=== PATIENT | female | born 1940 | race Caucasian/White ===

== ENCOUNTER → 2016-12-16 | Outpatient (CLI) | payer BC ==
[~2016-12-16] MED LIST: ALBINS/ INH; ALBUAER2 INH; ALPR1TAB3 PO; ATOR-26 PO; CLOP1TAB15 PO; CRDCD240 PO; DULO60CA44 PO; DXY100 PO; EFF75 PO; FRS/40 PO; LEVO50TA6 PO; LISI20TA3 PO; LOSA100T65 PO; METO1TAB69 PO; MOME100A INH; MOME200A INH; Magnesium PO; NUTR-977 PO; ONDA8TAB6 PO; POTA20TA16 PO; PRED10TA PO; PROC1TAB5 PO; SENNTAB23 PO; SPRIN/30 INH; VALA500T60 PO
--- NOTE | 2016-12-16 14:51 | DIAGNOSTIC IMAGING REPORT ---
PET/CT CLINICAL HISTORY: Small cell lung cancer. COMPARISON STUDY: PET/CT dated 04/03/2016. Chest CT dated 08/17/2016. TECHNIQUE: One hour following the IV administration of 14.15 mCi of F-18 FDG, PET/CT examination was performed from the orbital meatal line through the bony pelvis. Noncontrast CT is performed for the purposes of anatomic correlation and attenuation correction. Note that this does not reflect a diagnostic CT examination. Images were reviewed on a separate [employer] independent workstation. Fused images were obtained. Standard uptake values reported are maximum values within the region of interest expressed in gm/mL. FINDINGS: PET FINDINGS: Head and neck: There is expected physiologic activity within the visualized brain parenchyma at the skull base and the salivary glands. Thorax: Evaluation of the thorax demonstrates expected physiologic myocardial activity. Fiducials are noted in the right upper lobe at the site of the previously characterized pulmonary lesion. No recurrent or residual pulmonary lesion is seen. A precarinal lymph node as seen on image #74 and measures 1.6 x 0.9 cm. This is mildly FDG avid with a maximum SUV of 3.7. This is new from previous. No additional FDG avid mediastinal or hilar lymph nodes are identified. There is patchy airspace consolidation at the right lung base which demonstrates minimal FDG activity with a maximum SUV of 2.0. Low-level activity in the shoulders is likely on a degenerative basis. Abdomen and pelvis: There is expected activity within the liver, spleen, kidneys, renal collecting system, and bladder. Low-level bowel activity is likely within physical limits. Unenhanced CT images: Visualized brain parenchyma the skull base is grossly unremarkable. The bony orbits appear intact. There are bilateral ocular lens implants. The visualized paranasal sinuses and mastoid air cells are clear. The salivary and thyroid glands are within normal limits. No cervical lymphadenopathy is seen. There is atherosclerotic calcification of the thoracic aorta which is normal in caliber. The heart is mildly enlarged and there is a small pericardial effusion. No maxillary lymphadenopathy is seen. Advanced emphysema is noted. Metallic fiducials are noted in the right upper lobe. Patchy airspace consolidation is seen at the right lung base. See above under PET findings for details. The unenhanced liver, spleen, adrenal glands, and pancreas are grossly unremarkable. The gallbladder surgically absent. The kidneys are atrophic and without hydronephrosis. There is advanced atherosclerotic calcification of the abdominal aorta. An abdominal aortic aneurysm is unchanged in appearance and measures 4.8 x 5.3 cm. There is no bowel obstruction. There are scattered colonic diverticula without CT evidence of acute diverticulitis. No intraperitoneal free air or abdominal ascites is seen. There is no abdominal, pelvic sidewall, or inguinal lymphadenopathy. The bladder is decompressed and grossly unremarkable. The uterus and adnexa are normal as imaged. The skeletal structures are osteopenic. There are healed right pubic ring fractures. Degenerative change is noted throughout the spine. No lytic or blastic lesions are identified. IMPRESSION: 1. Fiducials are noted in the right upper lobe. No recurrent or residual pulmonary lesion is identified. 2. There is patchy airspace consolidation at the right lung base which demonstrates mild FDG avidity. This likely represents an infectious/inflammatory pneumonitis. Attention at follow-up is recommended. 3. There is a mildly enlarged and FDG avid precarinal lymph node, which is new from 08/17/2016. This is pathologically indeterminant, and may be on a reactive basis given the right lower lobe pulmonary abnormality. Metastatic disease is not excluded. Attention at follow-up is recommend. 4. No additional FDG avid mediastinal or hilar lymph nodes are seen. 5. There is no evidence of extrathoracic metastatic disease. 6. Again seen is a 4.8 x 5.3 cm infrarenal abdominal aortic aneurysm. If not performed already, vascular surgery follow-up is recommended. 7. Advanced emphysema. 8. Additional findings as above. Electronically signed by: Triston Gray M.D. 12/16/2016 2:50 PM Dictated Date/Time: 12/16/2016 2:37 PM
== END | disposition home or self-care (01) ==
LOC: C.PET 11:42
PROVIDERS: ATTEND Internal Medicine Hematology & Oncology
DX: C34.11 Malignant neoplasm of upper lobe, right bronchus or lung (principal)

== ENCOUNTER → 2017-01-09 | Outpatient (CLI) | payer BC ==
[~2017-01-09] MED LIST changes: +METO100T44 PO; -METO1TAB69 PO
[2017-01-09 18:05] LABS: BLOOD UREA NITROGEN 23 mg/dl (7-18); CALCIUM 9.2 mg/dl (8.5-10.1); CARBON DIOXIDE 36 mmol/L (21-32); CHLORIDE 100 mmol/L (98-107); GLUCOSE 120 mg/dl (70-99); POTASSIUM 3.4 mmol/L (3.5-5.1); SODIUM 143 mmol/L (136-145)
== END | disposition home or self-care (01) ==
LOC: C.LABMFLN 14:44
PROVIDERS: ATTEND Internal Medicine Cardiovascular Disease
DX: N28.9 Disorder of kidney and ureter, unspecified (principal)

== ENCOUNTER → 2017-02-06 | Outpatient (CLI) | payer BC ==
[2017-02-06 18:13] LABS: BLOOD UREA NITROGEN 30 mg/dl (7-18); BUN/CREATININE RATIO 23.4 (10-20); CARBON DIOXIDE 35 mmol/L (21-32); CHLORIDE 102 mmol/L (98-107); GLUCOSE 98 mg/dl (70-99); POTASSIUM 3.8 mmol/L (3.5-5.1); SODIUM 141 mmol/L (136-145)
[2017-02-06 18:15] LABS: CALCIUM 8.9 mg/dl (8.5-10.1)
[2017-02-06 18:19] LABS: FERRITIN 290.5 ng/ml (8.0-388.0)
[2017-02-11 06:34] LABS: ALBUMIN 3.7 G/DL (3.8-4.8); CREATININE UR 84 MG/DL (20-320); MONOCLONAL PROTEIN BAND 1 0.5 G/DL (NOT DETECTED); TOTAL PROTEIN 6.8 G/DL (6.2-8.3)
== END | disposition home or self-care (01) ==
LOC: C.LABMFLN 13:40
PROVIDERS: ATTEND Internal Medicine Cardiovascular Disease
DX: I42.9 Cardiomyopathy, unspecified (principal)

== ENCOUNTER → 2017-03-19 | Outpatient (CLI) | payer BC ==
[~2017-03-19] MED LIST changes: +OPTIRAY 320 IV PRN; -PRED10TA PO
--- NOTE | 2017-03-19 11:12 | DIAGNOSTIC IMAGING REPORT ---
CHEST CT WITH CONTRAST CT DOSE: 340.67 mGycm HISTORY: Lung cancer. Follow-up. TECHNIQUE: Multiaxial CT images of the chest were performed following the intravenous administration of contrast. COMPARISON: PET CT 12/16/2016. Chest CTA 08/17/2016. FINDINGS: Metallic fiducial marker within the right upper lobe is again noted. No residual adjacent nodule identified. Peripheral consolidation within the right upper lobe at the level of the fiducial marker. This is new from the prior study. This may represent post radiation change. Emphysema. A few subcentimeter scattered nodules seen within the posterior aspect of the right upper lobe on images 105-108 remains stable. This may represent mild inflammatory/infectious change. There are stable subcentimeter groundglass nodules within the left lower lobe on image 119 and 140. The largest measures 4 mm. Stable 3 mm nodule within the medial aspect of the right lower lobe on image 176. Left lower lobe irregular density seen on the prior chest CT is resolved. Mild diffuse bronchial wall thickening, unchanged. No suspicious lytic or blastic osseous lesions. Significant increase in size of the 3.0 x 2.0 cm right peritracheal lymph node. No hilar lymphadenopathy. The heart is normal in size. No pleural effusions. No pneumothorax. Cholecystectomy. The visualized liver, spleen, and right adrenal gland are unremarkable. A few hypodense lesions within the kidneys favor cysts. Stable 8 mm left adrenal gland nodule. Partially visualized 5.6 x 4.6 cm abdominal aortic aneurysm. This is not significantly change. 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 The central pulmonary arteries are patent. IMPRESSION: 1. Significant increase in size in the 3 x 2 cm right paratracheal lymph node. This is highly suspicious for metastatic disease. 2. Peripheral consolidation within the right upper lobe at the level of the fiducial marker. This may represent post radiation change or mild infectious change. 3. Additional findings as described above. Electronically signed by: Delmer Granado M.D. 03/19/2017 11:11 AM Dictated Date/Time: 03/19/2017 10:56 AM
== END | disposition home or self-care (01) ==
LOC: C.CTS 10:33
PROVIDERS: ATTEND Nurse Practitioner
DX: C34.11 Malignant neoplasm of upper lobe, right bronchus or lung (principal)

== ENCOUNTER → 2017-04-01 | Outpatient (CLI) | payer BC ==
[~2017-04-01] MED LIST changes: -METO100T44 PO; +METO1TAB69 PO; -OPTIRAY 320 IV PRN
[2017-04-01 15:33] LABS: BLOOD UREA NITROGEN 16 mg/dl (7-18); BUN/CREATININE RATIO 14.4 (10-20); CALCIUM 8.9 mg/dl (8.5-10.1); CARBON DIOXIDE 33 mmol/L (21-32); CHLORIDE 106 mmol/L (98-107); GLUCOSE 94 mg/dl (70-99); POTASSIUM 4.4 mmol/L (3.5-5.1); SODIUM 144 mmol/L (136-145)
== END | disposition home or self-care (01) ==
LOC: C.LABMFLN 11:46
PROVIDERS: ATTEND Physician Assistant
DX: I42.9 Cardiomyopathy, unspecified (principal)

== ENCOUNTER → 2017-04-29 | Outpatient (CLI) | payer BC ==
[~2017-04-29] MED LIST changes: -CRDCD240 PO; -DULO60CA44 PO; -DXY100 PO; -LOSA100T65 PO; -MOME200A INH; -NUTR-977 PO; -SENNTAB23 PO
[2017-04-29 18:18] LABS: ALT/SGPT 16 U/L (12-78); AST/SGOT 11 U/L (15-37); BLOOD UREA NITROGEN 24 mg/dl (7-18); BUN/CREATININE RATIO 23.8 (10-20); CALCIUM 8.9 mg/dl (8.5-10.1); CARBON DIOXIDE 35 mmol/L (21-32); CHLORIDE 107 mmol/L (98-107); GLUCOSE 93 mg/dl (70-99); POTASSIUM 4.5 mmol/L (3.5-5.1); SODIUM 144 mmol/L (136-145)
[2017-04-29 18:20] LABS: ALB/GLOB RATIO 0.9 (0.9-2); ALKALINE PHOSPHATASE 101 U/L (45-117)
[2017-04-29 18:37] LABS: BASO % 0.7 %; BASO ABS # 0.04 K/uL (0-0.2); COMPLETE YES; EOS % 3.8 %; HEMATOCRIT 30.6 % (37-47); IG% 0.2 %; LYMPH % 14.3 %; LYMPH ABS # 0.79 K/uL (1.2-3.4); MEAN CELL VOLUME 97.1 fL (80-100); MEAN CORPUSCULAR HEMOGLOBIN 28.9 pg (25-34); MEAN CORPUSCULAR HGB CONC 29.7 g/dl (32-36); MEAN PLATELET VOLUME 10.6 fL (7.4-10.4); MONO % 9.6 %; NEUT % 71.4 %; PLATELET COUNT 188 K/uL (130-400); RED BLOOD COUNT 3.15 M/uL (4.2-5.4); WHITE BLOOD COUNT 5.51 K/uL (4.8-10.8)
== END | disposition home or self-care (01) ==
LOC: C.LABMFLN 14:51
PROVIDERS: ATTEND Internal Medicine Cardiovascular Disease
DX: C34.11 Malignant neoplasm of upper lobe, right bronchus or lung (principal); I10 Essential (primary) hypertension; E78.5 Hyperlipidemia, unspecified; I42.9 Cardiomyopathy, unspecified; R06.09 Other forms of dyspnea; I44.7 Left bundle-branch block, unspecified; I47.1 Supraventricular tachycardia

== ENCOUNTER → 2017-06-12 | Outpatient (CLI) | payer BC | END | disposition home or self-care (01) | LOC: C.LABMFLN 13:48 | PROVIDERS: ATTEND Internal Medicine Cardiovascular Disease | DX: I42.9 Cardiomyopathy, unspecified (principal) ==

== ENCOUNTER → 2017-06-17 | Outpatient (CLI) | payer BC ==
[2017-06-17 18:29] LABS: BLOOD UREA NITROGEN 21 mg/dl (7-18); BUN/CREATININE RATIO 18.7 (10-20); CALCIUM 8.3 mg/dl (8.5-10.1); CARBON DIOXIDE 35 mmol/L (21-32); CHLORIDE 105 mmol/L (98-107); GLUCOSE 92 mg/dl (70-99); POTASSIUM 4.4 mmol/L (3.5-5.1); SODIUM 142 mmol/L (136-145)
== END | disposition home or self-care (01) ==
LOC: C.LABMFLN 15:04
PROVIDERS: ATTEND Physician Assistant
DX: I42.9 Cardiomyopathy, unspecified (principal)

== ENCOUNTER → 2017-07-22 | Outpatient (CLI) | payer BC ==
[~2017-07-22] MED LIST changes: +METO100T44 PO; -METO1TAB69 PO
[2017-07-22 14:10] VITALS: BP 120/67; PULSE 60; TEMP 36.5; O2SAT 99
--- NOTE | 2017-07-22 16:00 | Radiation Oncology Follow-Up ---
Radiation Oncology Follow-Up Date of Visit Jul 22, 2017. Reason For Visit One-month follow-up Radiation Completion Date 06/16/17 Diagnosis (1) Small cell lung cancer Status: Acute Onset Date: 04/22/2016 Location: recurrent right paratracheal mass Permanent Comment: DIAGNOSIS: Lung, RUL, small cell lung carcinoma, [id number], stage IA Status post combined radiation and chemotherapy Radiation completed 06/26/2016 received 4500 cGy Right paratracheal recurrence 03/19/2017 Status post completion of radiation therapy 06/16/2017. She received 7000 cGy Last Edited By: Elly Izaguirre on Jun 23, 2017 11:43 History of Present Illness Ms. Jerez has a significant history for COPD who has been followed by pulmonology. She has had repeat CT imaging to follow her pulmonary disease. She did have a CT thorax with contrast on 11/29/2015 which did reveal a 7 mm indeterminate right upper lobe pulmonary nodule. A CT was repeated on 2015 which revealed that the right upper lobe nodule had increased in size to 9 mm but there is no other evidence of any pulmonary disease except for several subpleural goals measuring up to 3 mm. The patient was subsequently referred to Dr. Lewis who performed a bronchoscopy on 04/22/2016. 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 She did have a PET/CT scan completed on 04/03/2016 which did show only a 9 mm metabolically active right upper lobe nodule. There was no other evidence of pulmonary disease or distant metastatic disease. The patient was referred to Dr. Justin Eden who discussed chemotherapy and radiation therapy. We are now seeing the patient in consultation to discuss the role of radiation therapy. The patient does have an MRI of the brain which is still pending. Currently, the patient is doing relatively well overall. She is oxygen dependent and uses supplemental oxygen until she rests at night. She states her energy has been stable. She has had an intentional weight loss due to diet. She denies any fevers, chills or night sweats. She denies any hemoptysis. She denies any headaches or any focal neurologic deficits. Decision was to treat with combined radiation and chemotherapy. Radiation was completed 06/26/2016 she received 4500 cGy. She is stable from a respiratory standpoint. She continues with her all change in at 2.5 L/m. If she is physically active this is increased to 3 L/m. She denies any difficulty with swallowing. She is not having any ongoing chest discomfort. She did describe some discomfort in her chest following her CAT scan performed on 03/19/2017. This happened when she had gone out the parking lot. Discomfort was central in the chest. It resolved without difficulty. She did not develop any hives or swelling of lips or tongue. She's been followed closely by Dr. Eden. The CT scan has revealed that she has a recurrence in the right peritracheal region. Options of therapy were reviewed with her by Dr. Eden. She declines any further chemotherapy. She had had previous severe reactions. She is here today to determine if radiation can be given. She underwent a CT simulation. This was fused to the prior CAT scan as well as prior treatment delgado. Is was determined that she could undergo further radiation therapy. This was completed 06/16/2017. She received 7000 cGy. Radiation therapy was given alone. Interim History She has noted increased shortness of breath. Her sister has to drop her off at the door because walking a short distance will cause shortness of breath. She has a cough. She states that twice a day she will have a "coughing spell". Her and her sister went to the whole [facility] this past month. It was difficult for her to enjoy herself due to the shortness of breath. Her sister stated she Turned a wheelchair and push her around to get to the different sites that they wanted to enjoy. She has had some mild wheezing. She denies dysphagia. She did not have any skin irritation from the treatment. She feels that she may be a little more forgetful lately. Allergies Coded Allergies: Amoxicillin (Verified Allergy, Intermediate, HIVES INSIDE AND OUT, ) Nickel (Verified Allergy, Intermediate, RASH, 08/27/16) Levofloxacin (Verified Allergy, Unknown, unkown, 08/27/16) Penicillins (Verified Allergy, Unknown, unknown, 08/27/16) Home Medications Scheduled Atorvastatin (Lipitor), 80 MG PO HS Clopidogrel (Plavix), 75 MG PO HS Furosemide (Lasix), 40 MG PO DAILY Levothyroxine Sodium (Levothyroxine Sodium), 50 MCG PO QAM Lisinopril (Prinivil), 40 MG PO DAILY Metoprolol Succ (Toprol Xl) (Toprol-Xl ), 200 MG PO QPM Mometasone Furoate-Formoterol (Dulera 100/5 Mcg), 1 AER INH DAILY Potassium Ext Rel (Klor-Con), 20 MEQ PO QPM Tiotropium Temple (Spiriva Handihaler), 1 CAP INH DAILY Valacyclovir (Valtrex), 1 TAB PO DAILY Venlafaxine Hcl (Effexor), 75 MG PO DAILY [Magnesium], 535 MG PO BID Scheduled PRN Albuterol (Ventolin), 2 PUFFS INH QID PRN for Shortness of Breath Albuterol Sulf (Proventil 0.083% 2.5MG/3ML), 2.5 MG INH Q4-6H PRN for Shortness of Breath Alprazolam (Xanax), 1 MG PO TID PRN for Anxiety/Insomnia Ondansetron Hcl (Zofran), 8 MG PO Q8 PRN for Nausea Prochlorperazine Maleate (Compazine), 10 MG PO Q6-8H PRN for Nausea or Vomiting Review of Systems Gastrointestinal: Symptoms: WNL Oral: Symptoms: No Problems Respiratory: Symptoms: Dry Cough, SOB With Exertion, Productive Cough Respiratory Comments: Oxygen on at 3l/min via nasal cannula;SOB w/activities Sputum Character: Productive cough for clear to yellow sputum; Other Respiratory: Severe coughing spells TID that resolves once produces phlegm; Urinary: Symptoms: WNL Skin: Symptoms: No Problems Physical Exam Vital Signs Date Time Temp Pulse Resp B/P (MAP) Pulse Ox O2 Delivery O2 Flow Rate FiO2 07/22/17 14:10 36.5 60 20 120/67 99 Fatigue: None General Appearance: no apparent distress Eyes: normal inspection, EOMI ENT: normal ENT inspection, hearing grossly normal Respiratory/Chest: no respiratory distress, no accessory muscle use, + wheezing (mild wheezing noted in the right upper lobe area otherwise clear but decreased ) Cardiovascular: regular rate, rhythm, no gallop, no murmur Neurologic/Psychiatric: no motor/sensory deficits, alert, normal mood/affect Skin: warm/dry Laboratory Studies Test 04/29/17 15:01 06/12/17 13:51 06/17/17 15:07 White Blood Count 5.51 K/uL (4.8-10.8) Red Blood Count 3.15 M/uL (4.2-5.4) Hemoglobin 9.1 g/dL (12.0-16.0) Hematocrit 30.6 % (37-47) Mean Corpuscular Volume 97.1 fL (80-100) Mean Corpuscular Hemoglobin 28.9 pg (25-34) Mean Corpuscular Hemoglobin Concent 29.7 g/dl (32-36) Platelet Count 188 K/uL (130-400) Mean Platelet Volume 10.6 fL (7.4-10.4) Neutrophils (%) (Auto) 71.4 % Lymphocytes (%) (Auto) 14.3 % Monocytes (%) (Auto) 9.6 % Eosinophils (%) (Auto) 3.8 % Basophils (%) (Auto) 0.7 % Neutrophils # (Auto) 3.93 K/uL (1.4-6.5) Lymphocytes # (Auto) 0.79 K/uL (1.2-3.4) Monocytes # (Auto) 0.53 K/uL (0.11-0.59) Eosinophils # (Auto) 0.21 K/uL (0-0.5) Basophils # (Auto) 0.04 K/uL (0-0.2) RDW Standard Deviation 55.1 fL (36.4-46.3) RDW Coefficient of Variation 15.5 % (11.5-14.5) Immature Granulocyte % (Auto) 0.2 % Immature Granulocyte # (Auto) 0.01 K/uL (0.00-0.02) Sodium Level 144 mmol/L (136-145) 142 mmol/L (136-145) Potassium Level 4.5 mmol/L (3.5-5.1) 4.4 mmol/L (3.5-5.1) Chloride Level 107 mmol/L (98-107) 105 mmol/L (98-107) Carbon Dioxide Level 35 mmol/L (21-32) 35 mmol/L (21-32) Anion Gap 2.0 mmol/L (3-11) 2.0 mmol/L (3-11) Blood Urea Nitrogen 24 mg/dl (7-18) 21 mg/dl (7-18) Creatinine 1.00 mg/dl (0.60-1.20) 1.10 mg/dl (0.60-1.20) Estimated GFR () 62.5 55.7 Estimated GFR (Non- 53.9 48.1 BUN/Creatinine Ratio 23.8 (10-20) 18.7 (10-20) Random Glucose 93 mg/dl (70-99) 92 mg/dl (70-99) Calcium Level 8.9 mg/dl (8.5-10.1) 8.3 mg/dl (8.5-10.1) Total Bilirubin 0.3 mg/dl (0.2-1) Aspartate Amino Transferase (AST) 11 U/L (15-37) Alanine Aminotransferase (ALT) 16 U/L (12-78) Alkaline Phosphatase 101 U/L (45-117) Total Protein 6.5 gm/dl (6.4-8.2) Albumin 3.1 gm/dl (3.4-5.0) Globulin 3.4 gm/dl (2.5-4.0) Albumin/Globulin Ratio 0.9 (0.9-2) Serum Immunofixation SEE NOTE Assessment & Plan Plan: The patient was also seen and examined by Dr. Mckee. We discussed follow- up imaging. She'll be seeing Dr. Eden on Friday. We'll wait for his evaluation and recommendation. Due to the increased shortness of breath and cough she is prescribed a Medrol Dosepak. This is in case she is having radiation pneumonia. We otherwise asked her to return to our office in 4 months. She may call if she has any questions or concerns. Follow-up scans will be ordered if not set up by Dr. Eden. Assessment & Plan (Attending) ADDENDUM: I agree with note created by Elly Izaguirre PA-C. I reviewed the patient's chart and information with her. I have examined and evaluated the patient. I reviewed relevant clinical information and answered the patient's and /or family's questions. WORKING MANAGER Total Time In Follow-Up I spent 20 minutes speaking to the patient and performing examination. I set 15 minutes reviewing information and completing this note. Total Time (Attending) In Follow-Up I spent 15 minutes examining and counseling the patient. WORKING MANAGER Copy To Justin Eden D.O.; Pavel Cain M.D.; Teofilo Whalen PA-C; Jean Lewis MD Problem Qualifiers (1) Small cell lung cancer: Laterality: right Qualified Codes: C34.91 - Malignant neoplasm of unspecified part of right bronchus or lung
== END | disposition home or self-care (01) ==
LOC: C.ONC 14:06
PROVIDERS: ATTEND Physician Assistant Medical
DX: Z08 Encounter for follow-up examination after completed treatment for malignant neoplasm (principal); Z92.3 Personal history of irradiation; Z85.118 Personal history of other malignant neoplasm of bronchus and lung

== ENCOUNTER → 2017-08-04 | Outpatient (CLI) | payer BC ==
[~2017-08-04] MED LIST changes: +OPTIRAY 320 IV PRN
--- NOTE | 2017-08-04 16:08 | DIAGNOSTIC IMAGING REPORT ---
(CHEST) THORAX WITH CT DOSE: 844.87 mGy.cm HISTORY: Lung carcinoma SMALL CELL LUNG CA TECHNIQUE: Multiaxial CT images of the chest were performed following the intravenous administration of contrast. A dose lowering technique was utilized adhering to the principles of ALARA. COMPARISON: 03/19/2017 FINDINGS: scattered fibrotic change in the right upper lobe region in a similar distribution as compared to the prior study. This is slightly improved at the peripheral aspect and is unchanged centrally. The mediastinal node previously described has resolved. There is no significant hilar or mediastinal nodes the current time. A focus of nodular pleural thickening lateral aspect right upper lung is considerably diminished. The mid and lower lung regions are considered clear. A baseline underlying emphysematous change with bleb formation throughout is stable. Findings of a prior cholecystectomy unchanged. Limited evaluation the upper abdomen shows no change from the prior exam. IMPRESSION: 1. Improved exam. 2. No significant residual mediastinal or hilar adenopathy. 3. A parenchymal changes of the right upper lobe region are generally stable with the pleural-based changes moderately improved. 4. No evidence for progressive process. The above report was generated using voice recognition software. It may contain grammatical, syntax or spelling errors. Electronically signed by: Marlon Clancy M.D. 08/04/2017 4:07 PM Dictated Date/Time: 08/04/2017 4:00 PM
--- NOTE | 2017-08-04 17:33 | DIAGNOSTIC IMAGING REPORT ---
CT OF THE ABDOMEN AND PELVIS WITH CONTRAST CLINICAL HISTORY: Small cell lung cancer. COMPARISON STUDY: PET/CT December 16, 2016. TECHNIQUE: Following IV administration of 119 mL of Optiray-320, axial images of the abdomen and pelvis were obtained from the lung bases to the proximal femurs. Images were reviewed in the axial, sagittal, and coronal planes. IV contrast was administered without complication. A dose lowering technique was utilized adhering to the principles of ALARA. Oral contrast was administered. FINDINGS: The chest portion of the study will be reported separately. A 1.5 cm left adrenal nodule is unchanged since exam of April 24, 2015. The right adrenal gland, spleen, pancreas and liver are unremarkable. There is no biliary ductal dilatation status post cholecystectomy. A few subcentimeter renal lesions likely reflect cysts. No enlarged abdominal or pelvic lymph nodes are present. An infrarenal abdominal aortic aneurysm has mildly increased in size since PET/CT of December 16, 2016. This aneurysm now measures 5.8 x 4.8 cm. It previously measured 5.7 x 4.6 cm. There is no evidence for rupture. There is extensive eccentric neural plaque. Caliber and wall thickness of small and large bowel are normal. No suspicious osseous lesions are present. There is no bowel obstruction. IMPRESSION: 1. No evidence of metastatic disease within the abdomen or pelvis. 2. Slight increase in size of a 5.8 x 4.8 cm infrarenal abdominal aortic aneurysm since PET/CT of December 16, 2016. Electronically signed by: Reynaldo Mitchell M.D. 08/04/2017 5:32 PM Dictated Date/Time: 08/04/2017 3:59 PM
== END | disposition home or self-care (01) ==
LOC: C.CTS 13:46
PROVIDERS: ATTEND Internal Medicine Hematology & Oncology
DX: C34.11 Malignant neoplasm of upper lobe, right bronchus or lung (principal); I71.4 Abdominal aortic aneurysm, without rupture

== ENCOUNTER → 2017-08-15 | Outpatient (CLI) | payer BC ==
[~2017-08-15] MED LIST changes: -OPTIRAY 320 IV PRN
[2017-08-15 18:19] LABS: MEAN CELL VOLUME 93.8 fL (80-100); MEAN CORPUSCULAR HEMOGLOBIN 27.5 pg (25-34); MEAN CORPUSCULAR HGB CONC 29.3 g/dl (32-36); MEAN PLATELET VOLUME 9.6 fL (7.4-10.4); PLATELET COUNT 252 K/uL (130-400)
[2017-08-15 18:56] LABS: ALT/SGPT 16 U/L (12-78); BLOOD UREA NITROGEN 24 mg/dl (7-18); BUN/CREATININE RATIO 19.9 (10-20); CALCIUM 9.3 mg/dl (8.5-10.1); CARBON DIOXIDE 32 mmol/L (21-32); CHLORIDE 103 mmol/L (98-107); CREATININE 1.22 mg/dl (0.60-1.20); GLUCOSE 91 mg/dl (70-99); POTASSIUM 4.7 mmol/L (3.5-5.1); SODIUM 141 mmol/L (136-145)
[2017-08-15 18:57] LABS: AST/SGOT 9 U/L (15-37)
== END | disposition home or self-care (01) ==
LOC: C.LABMFLN 15:53
PROVIDERS: ATTEND Internal Medicine Cardiovascular Disease
DX: I10 Essential (primary) hypertension (principal); E78.5 Hyperlipidemia, unspecified; I42.9 Cardiomyopathy, unspecified; I65.29 Occlusion and stenosis of unspecified carotid artery; I51.9 Heart disease, unspecified

== ENCOUNTER → 2017-10-10 | Outpatient (CLI) | payer BC ==
--- NOTE | 2017-10-10 14:32 | DIAGNOSTIC IMAGING REPORT ---
CHEST 2 VIEWS ROUTINE HISTORY: 77 years-old Female R06.02 SOB (shortness of breath) on [id number] acute shortness of breath COMPARISON: Chest radiographs 08/28/2016, chest CT 08/04/2017 TECHNIQUE: PA and lateral views of the chest FINDINGS: Cardiac silhouette is again mildly enlarged. Fiducial markers are again seen within the right upper lobe. Linear pleural-based area of scarring adjacent to the fiducial markers again seen which appears stable from comparison chest CT. 4 mm nodular opacity of the right lower lobe appears unchanged from comparison chest CT suggesting an area of focal scarring. Emphysema. No pneumothorax, pleural effusion or lobar airspace consolidation. Surgical clips are seen within the upper abdomen. IMPRESSION: 1. Emphysema without acute process. 2. No lobar airspace consolidation to suggest pneumonia. The above report was generated using voice recognition software. It may contain grammatical, syntax or spelling errors. Electronically signed by: Juan Quach M.D. 10/10/2017 2:31 PM Dictated Date/Time: 10/10/2017 2:28 PM
== END | disposition home or self-care (01) ==
LOC: C.RAD1850 14:17
PROVIDERS: ATTEND Physician Assistant
DX: J43.9 Emphysema, unspecified (principal)

== ENCOUNTER → 2017-10-17 | Outpatient (CLI) | payer BC ==
[2017-10-17 12:39] LABS: BASO % 0.2 %; BASO ABS # 0.03 K/uL (0-0.2); EOS % 0.6 %; EOS ABS # 0.07 K/uL (0-0.5); HEMATOCRIT 33.5 % (37-47); HEMOGLOBIN 9.8 g/dL (12.0-16.0); LYMPH % 7.1 %; LYMPH ABS # 0.89 K/uL (1.2-3.4); MEAN CELL VOLUME 92.5 fL (80-100); MEAN CORPUSCULAR HEMOGLOBIN 27.1 pg (25-34); MEAN CORPUSCULAR HGB CONC 29.3 g/dl (32-36); MEAN PLATELET VOLUME 10.2 fL (7.4-10.4); MONO ABS # 1.13 K/uL (0.11-0.59); NEUT % 82.3 %; NEUT ABS # 10.34 K/uL (1.4-6.5); PLATELET COUNT 303 K/uL (130-400); RED CELL DISTRIBUTION WIDTH CV 16.2 % (11.5-14.5); RED CELL DISTRIBUTION WIDTH SD 54.4 fL (36.4-46.3); WHITE BLOOD COUNT 12.56 K/uL (4.8-10.8)
[2017-10-17 12:54] LABS: INR 0.9 (0.9-1.1)
[2017-10-17 13:48] LABS: BLOOD UREA NITROGEN 31 mg/dl (7-18); CALCIUM 8.4 mg/dl (8.5-10.1); CARBON DIOXIDE 34 mmol/L (21-32); CREATININE 1.23 mg/dl (0.60-1.20); GLUCOSE 107 mg/dl (70-99); POTASSIUM 4.1 mmol/L (3.5-5.1); SODIUM 140 mmol/L (136-145)
== END | disposition home or self-care (01) ==
LOC: C.LABMFLN 10:26
PROVIDERS: ATTEND Internal Medicine Cardiovascular Disease
DX: I42.9 Cardiomyopathy, unspecified (principal)

== ENCOUNTER → 2017-10-30 | Outpatient (CLI) | payer BC ==
[2017-10-30 18:25] LABS: ALBUMIN 2.8 gm/dl (3.4-5.0); ALT/SGPT 30 U/L (12-78); BLOOD UREA NITROGEN 31 mg/dl (7-18); CALCIUM 9.7 mg/dl (8.5-10.1); CARBON DIOXIDE 33 mmol/L (21-32); CREATININE 1.53 mg/dl (0.60-1.20); GLUCOSE 99 mg/dl (70-99); POTASSIUM 4.2 mmol/L (3.5-5.1); SODIUM 140 mmol/L (136-145)
[2017-10-30 18:28] LABS: ALKALINE PHOSPHATASE 95 U/L (45-117); AST/SGOT 22 U/L (15-37); TOTAL PROTEIN 6.1 gm/dl (6.4-8.2)
[2017-10-30 19:25] LABS: BASO % 0.6 %; BASO ABS # 0.04 K/uL (0-0.2); EOS % 2.1 %; EOS ABS # 0.15 K/uL (0-0.5); HEMATOCRIT 30.8 % (37-47); HEMOGLOBIN 8.8 g/dL (12.0-16.0); IG# 0.02 K/uL (0.00-0.02); LYMPH % 13.1 %; LYMPH ABS # 0.92 K/uL (1.2-3.4); MEAN CELL VOLUME 94.2 fL (80-100); MEAN CORPUSCULAR HEMOGLOBIN 26.9 pg (25-34); MEAN CORPUSCULAR HGB CONC 28.6 g/dl (32-36); MEAN PLATELET VOLUME 10.5 fL (7.4-10.4); MONO % 11.8 %; MONO ABS # 0.83 K/uL (0.11-0.59); NEUT % 72.1 %; NEUT ABS # 5.07 K/uL (1.4-6.5); PLATELET COUNT 185 K/uL (130-400); RED CELL DISTRIBUTION WIDTH CV 16.5 % (11.5-14.5); RED CELL DISTRIBUTION WIDTH SD 56.7 fL (36.4-46.3); WHITE BLOOD COUNT 7.03 K/uL (4.8-10.8)
== END | disposition home or self-care (01) ==
LOC: C.LABMFLN 11:52
PROVIDERS: ATTEND Nurse Practitioner
DX: C34.11 Malignant neoplasm of upper lobe, right bronchus or lung (principal)

== ENCOUNTER → 2017-11-10 | Outpatient (CLI) | payer BC ==
[~2017-11-10] MED LIST changes: +OPTIRAY 320 IV PRN
--- NOTE | 2017-11-10 16:27 | DIAGNOSTIC IMAGING REPORT ---
CT OF THE CHEST WITH IV CONTRAST CLINICAL HISTORY: SMALL CELL LUNG CA COMPARISON STUDY: 08/04/2017 TECHNIQUE: Following the IV administration of 93 mL of Optiray-320, CT of the thorax was performed from the thoracic inlet to the lung bases. Images are reviewed in the axial, sagittal, and coronal planes. IV contrast was administered without complication. A dose lowering technique was utilized adhering to the principles of ALARA. CT DOSE: 886.86 mGy.cm FINDINGS: Thyroid: Imaged portions of the thyroid gland are normal in appearance. Thoracic aorta: There is no evidence of thoracic aortic dilatation. There are extensive atheromatous changes at the level aortic arch. There is a partially thrombosed aneurysm arising from the left lateral aspect of the arch measuring 15 mm. Pulmonary vasculature: The pulmonary trunk is normal in caliber. There are no central filling defects identified to suggest pulmonary embolus. Note that this examination was not protocoled for the evaluation of pulmonary emboli. HEART: The heart is normal in size. There are coronary artery calcifications. Lungs and pleural spaces: There is pulmonary emphysema. There is a small right pleural effusion. There is right upper lobe volume loss. There are developing right upper lobe nodular airspace opacities the largest of which measures 29 mm. Close imaging follow-up will be necessary to differentiate tumor recurrence from an infectious/inflammatory process. There is a right upper lobe fiducial marker. There is an enlarging 7 mm left upper lobe pulmonary nodule as visualized in image #[id number]. This must be viewed as suspicious for metastatic disease. Mediastinum: There is a stable 26 mm prevascular mediastinal lymph node Faye: There is no evidence of pathologic hilar adenopathy Axilla: There is no evidence of pathologic axillary lymphadenopathy Upper abdomen: There are multiple hepatic masses consistent with metastatic disease. There is an abdominal aortic aneurysm. Skeletal structures: There are no lytic or blastic osseous lesions. IMPRESSION: 1. Pulmonary emphysema 2. Multiple hepatic masses consistent with metastatic disease 3. Enlarged prevascular mediastinal lymph node 4. Enlarging 7 mm left upper lobe pulmonary nodule, suspicious for metastatic disease 5. Developing right upper lobe nodular airspace opacities, the largest of which measures 29 mm. 6. Small right pleural effusion Electronically signed by: Bhaskar Castillo M.D. 11/10/2017 4:26 PM Dictated Date/Time: 11/10/2017 4:15 PM
--- NOTE | 2017-11-10 16:30 | DIAGNOSTIC IMAGING REPORT ---
ABD/PELVIS IV CONTRAST ONLY CLINICAL HISTORY: 77 years-old Female presenting with SMALL CELL LUNG CA. TECHNIQUE: Multidetector CT of the abdomen and pelvis was performed after the administration of intravenous contrast. IV contrast: 93 mL of Optiray 320. A dose lowering technique was used consistent with the principles of ALARA (as low as reasonably achievable). COMPARISON: 08/04/2017. CT DOSE (mGy.cm): The estimated cumulative dose is 886.86. 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 Lung bases: Emphysema and bibasilar scarring or atelectasis. Normal heart size. No pericardial or pleural effusion. Liver: Normal morphology. Interval development of large suspicious lesions in the right hepatic lobe, measuring 4.2 cm (series 7 image 93, 4.4 cm in diameter (series 7 image 93), 3.6 cm (series 7 image 137), and 4.2 cm (series 7 image 137). Additional well-defined punctate hypodensities (series 7 images 40, 60, 64), not clearly seen on prior exam but likely hepatic cysts or hamartomas. Patent hepatic vasculature. Biliary: No intrahepatic or extrahepatic biliary ductal dilatation. Gallbladder surgically absent. Pancreas: Mild parenchymal atrophy. Spleen: Normal. Adrenal glands: Nodular thickening of the medial limb of the left adrenal gland is unchanged, nonspecific. Right adrenal gland normal. Kidneys and ureters: Multiple hypodensities in the kidneys, likely cysts. No hydronephrosis. Bladder: Normal. Pelvic organs: Uterus and ovaries normal. Bowel: Limited diverticulosis of the proximal sigmoid colon. Moderate stool burden in the left colon. No bowel obstruction. Density within the jejunum may represent a medication (series 7 image 118). Peritoneal cavity: No free fluid or intraperitoneal gas. Lymph nodes: No enlarged lymph nodes in the abdomen or pelvis. Vasculature: Fusiform infrarenal abdominal aortic aneurysm measures 4.9 x 5.9 cm, previously 4.7 x 5.8 cm, not significant changed. Prominent crescentic mural thrombus/noncalcified plaque. The aneurysm does not extend into the common iliac vessels. IVC patent. Abdominal wall: Normal. Musculoskeletal: Post traumatic deformity of the right inferior pubic ramus. Degenerative changes of the spine and sacroiliac joints. IMPRESSION: 1. Interval development of multiple highly suspicious hepatic lesions. This is characteristic of hepatic metastases. No other sites of metastatic disease in abdomen or pelvis. 2. Stable appearance of the infrarenal abdominal aortic aneurysm. 3. Emphysema. Please see separately dictated CT of the chest. The report will be called/faxed according to standard departmental protocol. Electronically signed by: Jimbo Ventura M.D. 11/10/2017 4:28 PM Dictated Date/Time: 11/10/2017 4:16 PM
== END | disposition home or self-care (01) ==
LOC: C.CTS 13:35
PROVIDERS: ATTEND Internal Medicine Hematology & Oncology
DX: C34.11 Malignant neoplasm of upper lobe, right bronchus or lung (principal)

== ENCOUNTER → 2017-11-27 | Outpatient (CLI) | payer BC ==
[~2017-11-27] MED LIST changes: -OPTIRAY 320 IV PRN
[2017-11-27 14:13] VITALS: BP 126/71; PULSE 68; TEMP 36.6; O2SAT 98
--- NOTE | 2017-11-27 15:51 | Radiation Oncology Follow-Up ---
Radiation Oncology Follow-Up Date of Visit Nov 27, 2017. Reason For Visit Four-month follow-up Radiation Completion Date 06/16/17 Diagnosis (1) Small cell lung cancer Status: Acute Onset Date: 04/22/2016 Stage: IV Permanent Comment: DIAGNOSIS: Lung, RUL, small cell lung carcinoma, [id number], stage IA Status post combined radiation and chemotherapy Radiation completed 06/26/2016 received 4500 cGy Right paratracheal recurrence 03/19/2017 Status post completion of radiation therapy 06/16/2017. She received [address] of the chest, abdomen, and pelvis November 10, 2017 revealing progression Initiation of chemotherapy with topotecan November 27, 2017 Last Edited By: Elly Izaguirre on Nov 27, 2017 15:38 History of Present Illness Ms. Jerez has a significant history for COPD who has been followed by pulmonology. She has had repeat CT imaging to follow her pulmonary disease. She did have a CT thorax with contrast on 11/29/2015 which did reveal a 7 mm indeterminate right upper lobe pulmonary nodule. A CT was repeated on 2015 which revealed that the right upper lobe nodule had increased in size to 9 mm but there is no other evidence of any pulmonary disease except for several subpleural goals measuring up to 3 mm. The patient was subsequently referred to Dr. Lewis who performed a bronchoscopy on 04/22/2016. 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 She did have a PET/CT scan completed on 04/03/2016 which did show only a 9 mm metabolically active right upper lobe nodule. There was no other evidence of pulmonary disease or distant metastatic disease. The patient was referred to Dr. Justin Eden who discussed chemotherapy and radiation therapy. We are now seeing the patient in consultation to discuss the role of radiation therapy. The patient does have an MRI of the brain which is still pending. Currently, the patient is doing relatively well overall. She is oxygen dependent and uses supplemental oxygen until she rests at night. She states her energy has been stable. She has had an intentional weight loss due to diet. She denies any fevers, chills or night sweats. She denies any hemoptysis. She denies any headaches or any focal neurologic deficits. Decision was to treat with combined radiation and chemotherapy. Radiation was completed 06/26/2016 she received 4500 cGy. She is stable from a respiratory standpoint. She continues with her all change in at 2.5 L/m. If she is physically active this is increased to 3 L/m. She denies any difficulty with swallowing. She is not having any ongoing chest discomfort. She did describe some discomfort in her chest following her CAT scan performed on 03/19/2017. This happened when she had gone out the parking lot. Discomfort was central in the chest. It resolved without difficulty. She did not develop any hives or swelling of lips or tongue. She's been followed closely by Dr. Eden. The CT scan has revealed that she has a recurrence in the right peritracheal region. Options of therapy were reviewed with her by Dr. Eden. She declines any further chemotherapy. She had had previous severe reactions. She is here today to determine if radiation can be given. She underwent a CT simulation. This was fused to the prior CAT scan as well as prior treatment delgado. Is was determined that she could undergo further radiation therapy. This was completed 06/16/2017. She received 7000 cGy. Radiation therapy was given alone. Interim History She has been doing well over the past 4-6 months from respiratory status. She does not note any increase in shortness of breath. She continues continuous nasal oxygen therapy. She has not developed any difficulties with swallowing. Her appetite is good and weight is stable. She had rechecked staging studies November 10, 2017. This unfortunately revealed multiple hepatic metastasis consistent with metastatic disease. Enlarged prevascular mediastinal lymph node. Enlarging 7 mm left upper lobe pulmonary nodule, suspicious for metastatic disease. Developing right upper lobe nodular airspace opacities, the largest of which is 29 mm. With these findings she is now been started on a new regimen of chemotherapy. The treatment started today. She will be continuing on Toproteca. She receives thisn 3 weeks out of 4 each month. His plan she will have a recheck scan in April. Allergies Coded Allergies: Amoxicillin (Verified Allergy, Intermediate, HIVES INSIDE AND OUT, ) Nickel (Verified Allergy, Intermediate, RASH, 08/27/16) Levofloxacin (Verified Allergy, Unknown, unkown, 08/27/16) Penicillins (Verified Allergy, Unknown, unknown, 08/27/16) Home Medications Scheduled Atorvastatin (Lipitor), 80 MG PO HS Clopidogrel (Plavix), 75 MG PO HS Furosemide (Lasix), 40 MG PO DAILY Levothyroxine Sodium (Levothyroxine Sodium), 50 MCG PO QAM Lisinopril (Prinivil), 40 MG PO DAILY Metoprolol Succ (Toprol Xl) (Toprol-Xl ), 200 MG PO QPM Mometasone Furoate-Formoterol (Dulera 100/5 Mcg), 1 AER INH DAILY Potassium Ext Rel (Klor-Con), 20 MEQ PO QPM Tiotropium [place] (Spiriva Handihaler), 1 CAP INH DAILY Valacyclovir (Valtrex), 1 TAB PO DAILY Venlafaxine Hcl (Effexor), 75 MG PO DAILY [Magnesium], 535 MG PO BID Scheduled PRN Albuterol (Ventolin), 2 PUFFS INH QID PRN for Shortness of Breath Albuterol Sulf (Proventil 0.083% 2.5MG/3ML), 2.5 MG INH Q4-6H PRN for Shortness of Breath Alprazolam (Xanax), 1 MG PO TID PRN for Anxiety/Insomnia Ondansetron Hcl (Zofran), 8 MG PO Q8 PRN for Nausea Prochlorperazine Maleate (Compazine), 10 MG PO Q6-8H PRN for Nausea or Vomiting Review of Systems Gastrointestinal: Symptoms: WNL Oral: Symptoms: No Problems Respiratory: Symptoms: SOB With Exertion Respiratory Comments: Oxygen on at 3l/min via nasal cannula;SOB w/activities Sputum Character: Productive cough for clear to yellow sputum; Other Respiratory: Oxygen on at 2l/min via nasal cannula Urinary: Symptoms: WNL Skin: Symptoms: No Problems Additional Notes: She denies pain and therefore requires no pain management. Physical Exam Vital Signs Date Time Temp Pulse Resp B/P (MAP) Pulse Ox O2 Delivery O2 Flow Rate FiO2 11/27/17 14:13 36.6 68 24 126/71 98 ECOG Performance Status: 1 Fatigue: None General Appearance: no apparent distress Eyes: normal inspection, EOMI ENT: normal ENT inspection, hearing grossly normal Neck: no adenopathy, thyroid normal Respiratory/Chest: lungs clear, no respiratory distress, no accessory muscle use, + decreased breath sounds Cardiovascular: regular rate, rhythm, no gallop, no murmur Extremities: no pedal edema Neurologic/Psychiatric: no motor/sensory deficits, alert, normal mood/affect Skin: warm/dry Pain Management Patient Reports Pain: No Pain Location: None Patient Preferred Pain Scale: 0 - 10 Initial Pain Intensity: 0.0 Pain Management Plan She denies pain therefore requires no pain management. Laboratory Laboratory Results: not applicable Pathology Pathology Results: not applicable Imaging Imaging Studies: were reviewed, and pertinent findings noted below Imaging Comments CT OF THE CHEST WITH IV CONTRAST CLINICAL HISTORY: SMALL CELL LUNG CA COMPARISON STUDY: 08/04/2017 TECHNIQUE: Following the IV administration of 93 mL of Optiray-320, CT of the thorax was performed from the thoracic inlet to the lung bases. Images are reviewed in the axial, sagittal, and coronal planes. IV contrast was administered without complication. A dose lowering technique was utilized adhering to the principles of ALARA. CT DOSE: 886.86 mGy.cm FINDINGS: Thyroid: Imaged portions of the thyroid gland are normal in appearance. Thoracic aorta: There is no evidence of thoracic aortic dilatation. There are extensive atheromatous changes at the level aortic arch. There is a partially thrombosed aneurysm arising from the left lateral aspect of the arch measuring 15 mm. Pulmonary vasculature: The pulmonary trunk is normal in caliber. There are no central filling defects identified to suggest pulmonary embolus. Note that this examination was not protocoled for the evaluation of pulmonary emboli. HEART: The heart is normal in size. There are coronary artery calcifications. Lungs and pleural spaces: There is pulmonary emphysema. There is a small right pleural effusion. There is right upper lobe volume loss. There are developing right upper lobe nodular airspace opacities the largest of which measures 29 mm. Close imaging follow-up will be necessary to differentiate tumor recurrence from an infectious/inflammatory process. There is a right upper lobe fiducial marker. There is an enlarging 7 mm left upper lobe pulmonary nodule as visualized in image #[id number]. This must be viewed as suspicious for metastatic disease. Mediastinum: There is a stable 26 mm prevascular mediastinal lymph node Faye: There is no evidence of pathologic hilar adenopathy Axilla: There is no evidence of pathologic axillary lymphadenopathy Upper abdomen: There are multiple hepatic masses consistent with metastatic disease. There is an abdominal aortic aneurysm. Skeletal structures: There are no lytic or blastic osseous lesions. IMPRESSION: 1. Pulmonary emphysema 2. Multiple hepatic masses consistent with metastatic disease 3. Enlarged prevascular mediastinal lymph node 4. Enlarging 7 mm left upper lobe pulmonary nodule, suspicious for metastatic disease 5. Developing right upper lobe nodular airspace opacities, the largest of which measures 29 mm. 6. Small right pleural effusion Electronically signed by: Bhaskar Castillo M.D. 11/10/2017 4:26 PM Dictated Date/Time: 11/10/2017 4:15 PM Patient: MARIA ELENA JEREZ Address1: [address] [place] [address] Rec: [id number] Address2: Acct ID: [id number] [facility] Zip: [place] [id number] Date: 1940 Sex: F Room/Bed: Ref Phy: Teofilo Whalen PA-C SC: C.CTS Att Phy: Justin Eden D.O. 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 Service Date: 11/10/17 Admit Date: 11/10/17 MNE: [id number] CONF: DICTATED BY: Jimbo Ventura MD]] CC: Justin Eden D.O., Steve M., PA-C Endcc: [~ rep ct add3]] ABD/PELVIS IV CONTRAST ONLY CLINICAL HISTORY: 77 years-old Female presenting with SMALL CELL LUNG CA. TECHNIQUE: Multidetector CT of the abdomen and pelvis was performed after the administration of intravenous contrast. IV contrast: 93 mL of Optiray 320. A dose lowering technique was used consistent with the principles of ALARA (as low as reasonably achievable). COMPARISON: 08/04/2017. CT DOSE (mGy.cm): The estimated cumulative dose is 886.86. FINDINGS: Hiv Cts Specialist topogram: Surgical clips project over the right apex, right upper quadrant, and left lower quadrant. Lung bases: Emphysema and bibasilar scarring or atelectasis. Normal heart size. No pericardial or pleural effusion. Liver: Normal morphology. Interval development of large suspicious lesions in the right hepatic lobe, measuring 4.2 cm (series 7 image 93, 4.4 cm in diameter (series 7 image 93), 3.6 cm (series 7 image 137), and 4.2 cm (series 7 image 137). Additional well-defined punctate hypodensities (series 7 images 40, 60, 64), not clearly seen on prior exam but likely hepatic cysts or hamartomas. Patent hepatic vasculature. Biliary: No intrahepatic or extrahepatic biliary ductal dilatation. Gallbladder surgically absent. Pancreas: Mild parenchymal atrophy. Spleen: Normal. Adrenal glands: Nodular thickening of the medial limb of the left adrenal gland is unchanged, nonspecific. Right adrenal gland normal. Kidneys and ureters: Multiple hypodensities in the kidneys, likely cysts. No hydronephrosis. Bladder: Normal. Pelvic organs: Uterus and ovaries normal. Bowel: Limited diverticulosis of the proximal sigmoid colon. Moderate stool burden in the left colon. No bowel obstruction. Density within the jejunum may represent a medication (series 7 image 118). Peritoneal cavity: No free fluid or intraperitoneal gas. Lymph nodes: No enlarged lymph nodes in the abdomen or pelvis. Vasculature: Fusiform infrarenal abdominal aortic aneurysm measures 4.9 x 5.9 cm, previously 4.7 x 5.8 cm, not significant changed. Prominent crescentic mural thrombus/noncalcified plaque. The aneurysm does not extend into the common iliac vessels. IVC patent. Abdominal wall: Normal. Musculoskeletal: Post traumatic deformity of the right inferior pubic ramus. Degenerative changes of the spine and sacroiliac joints. IMPRESSION: 1. Interval development of multiple highly suspicious hepatic lesions. This is characteristic of hepatic metastases. No other sites of metastatic disease in abdomen or pelvis. 2. Stable appearance of the infrarenal abdominal aortic aneurysm. 3. Emphysema. Please see separately dictated CT of the chest. The report will be called/faxed according to standard departmental protocol. Electronically signed by: Jimbo Ventura M.D. 11/10/2017 4:28 PM Dictated Date/Time: 11/10/2017 4:16 PM Assessment & Plan Plan: Patient is also seen today by Dr. Mckee. She will continue follow-up with medical oncology and her current regimen of chemotherapy. It is planned that she will have a recheck scan in April. She currently does not have stable disease and is therefore not a candidate for prophylactic cranial irradiation. She had mild complaint of forgetfulness. She is not having any problems with headaches, blurred vision, or dizziness. Recheck imaging of the brain per Dr. Eden. A follow-up appointment with our office was not given. She may return on a as needed basis. She may call our office if she has any questions or concerns that she feels is related to radiation therapy. Assessment & Plan (Attending) I agree with note created by Elly Izaguirre PA-C. I reviewed the patient's chart and information with her. I have examined and evaluated the patient. I reviewed relevant clinical information and answered the patient's and/or family' s questions. MORNING SHOW HOST Total Time In Follow-Up I spent 20 minutes speaking to the patient in performing examination. I spent 15 minutes reviewing information in completing this note. AK Total Time (Attending) In Follow-Up I spent 15 minutes examining and counseling the patient. MORNING SHOW HOST Copy To Justin Eden D.O.; Pavel Cain M.D.; Stephen Gallego MD; Jean Lewis MD Problem Qualifiers (1) Small cell lung cancer: Laterality: right Qualified Codes: C34.91 - Malignant neoplasm of unspecified part of right bronchus or lung
== END | disposition home or self-care (01) ==
LOC: C.ONC 13:48
PROVIDERS: ATTEND Physician Assistant Medical
DX: Z08 Encounter for follow-up examination after completed treatment for malignant neoplasm (principal); Z92.3 Personal history of irradiation; Z85.118 Personal history of other malignant neoplasm of bronchus and lung

== ENCOUNTER 2017-12-16 12:52 | Inpatient (IN) | payer BC, OTHER ==
[~2017-12-16] VITALS: Ht 160 cm; Wt 70.2 kg
[~2017-12-16 12:52] MED LIST changes: +ONDA-170 PO; -ONDA8TAB6 PO
[2017-12-16] MEDS ORDERED: SODIUM CHLORIDE 0.9% 1000ML 1,000 ML IV STA ×2 (13:17→14:52)
--- NOTE | 2017-12-16 13:21 | EMERGENCY ROOM VISIT NOTE ---
History Report prepared by Romero: Roc Bolaños Under the Supervision of: Dr. Ash Velez M.D. First contact with patient: 13:04 Chief Complaint: WEAKNESS Stated Complaint: WEAKNESS Nursing Triage Summary: pt reports feeling tired and just wants to sleep. feels cold and has sweats , constipated, last bm this am after 2 enema, softners and laxatives . loss of appetite fels dizzy intermittently.denies any n/v. pt sometimes disoriented takes long to answer has dazed look when you talk with her History of Present Illness The patient is a 77 year old white female with a past medical history of Anemia , AAA, Atrial fibrillation with rapid ventricular response, COPD with exacerbation, Lung mass with metastasis, and acute SOB (shortness of breath) who presents to the Emergency Room with complaints of constant generalized weakness that she has been experiencing for the past two weeks, since her second chemotherapy treatment. The patient is currently being treated for lung cancer with multiple metastases. The patient states that the weakness is diffuse , and the family members at bedside note that she has had associated dizziness and blurred vision. She is also experiencing a productive cough with fevers/ chills. The patient did have blood work done last week which showed a low white blood cell count. This has delayed her most recent chemo treatment. The family members also mentioned that the patient has not been drinking much fluids, and only drinks when she takes her pills. She denies any nausea/vomiting, but does note that she has been constipated. She has taken multiple stool softeners/ laxatives which has not caused a bowel movement. Source of History: patient, family Onset: Two weeks [employer] Quality: other (weakness) Timing: constant Associated Symptoms: + fevers, + chills, + cough Note: Dizziness and blurred vision. Review of Systems See HPI for pertinent positives and negatives. A total of ten systems were reviewed and were otherwise negative. Past Medical & Surgical Medical Problems: (1) AAA (abdominal aortic aneurysm) (2) Acute respiratory failure (3) Anemia (4) Aortic stenosis (5) Atrial fibrillation with rapid ventricular response (6) Cardiomyopathy (7) COPD (chronic obstructive pulmonary disease) (8) COPD with exacerbation (9) Depression (10) Diastolic CHF (11) HLD (hyperlipidemia) (12) HTN (hypertension) (13) Hypothyroidism (14) LBBB (left bundle branch block) (15) Paroxysmal A-fib (16) SOB (shortness of breath) Family History No pertinent family history Social History Smoking Status: Former Smoker Alcohol Use: none Drug Use: none Marital Status: Housing Status: lives alone Occupation Status: retired Current/Historical Medications Scheduled Albuterol Hfa (Ventolin Hfa), 2-4 PUFFS INH Q6H Atorvastatin (Lipitor), 80 MG PO HS Clopidogrel (Plavix), 75 MG PO HS Furosemide (Lasix), 40 MG PO DAILY Levothyroxine Sodium (Levothyroxine Sodium), 50 MCG PO QAM Lisinopril (Prinivil), 40 MG PO DAILY Metoprolol Succinate (Toprol Xl), 1 TAB PO DAILY Mometasone Furoate-Formoterol (Dulera 100/5 Mcg), 1 AER INH DAILY Mometasone Furoate-Formoterol (Dulera 100/5 Mcg), 2 PUFFS INH BID Potassium Ext Rel (Klor-Con), 20 MEQ PO QPM Tiotropium [place] (Spiriva Respimat), 1 PUFF INH DAILY Venlafaxine Hcl (Effexor Xr), 1 CAP PO DAILY [Magnesium], 535 MG PO BID Scheduled PRN Albuterol Sulf (Proventil 0.083% 2.5MG/3ML), 2.5 MG INH Q4-6H PRN for Shortness of Breath Alprazolam (Xanax), 1 MG PO TID PRN for Anxiety/Insomnia Ondansetron Hcl (Zofran), 8 MG PO Q8 PRN for Nausea Prochlorperazine Maleate (Compazine), 10 MG PO Q6-8H PRN for Nausea or Vomiting Allergies Coded Allergies: Amoxicillin (Verified Allergy, Intermediate, HIVES INSIDE AND OUT, 12/16/17 ) Nickel (Verified Allergy, Intermediate, RASH, 12/16/17) Levofloxacin (Verified Allergy, Unknown, unkown, 12/16/17) Penicillins (Verified Allergy, Unknown, unknown, 12/16/17) Physical Exam Vital Signs Date Time Temp Pulse Resp B/P (MAP) Pulse Ox O2 Delivery O2 Flow Rate FiO2 12/16/17 17:39 91 12/16/17 17:35 99 Nasal Cannula 2.0 12/16/17 16:30 88 18 114/50 99 Room Air 12/16/17 15:13 82 18 103/62 99 Nasal Cannula 2.0 12/16/17 13:43 100 Room Air 12/16/17 13:38 92 12/16/17 12:57 36.4 90 18 82/58 91 Nasal Cannula 3.0 Physical Exam GENERAL: Nasal cannula in place. Awake, alert, well-appearing, NAD HENT: Normocephalic, atraumatic. EYES: Normal conjunctiva. Sclera non-icteric. NECK: Supple. No nuchal rigidity. FROM. RESPIRATORY: Nasal cannula in place. Trace wheezing throughout, no rhonchi or crackles CARDIAC: RRR, no MRG ABDOMEN: Soft, NTND, BS+ MSK: No chest wall TTP, no LE edema NEURO: GCS 15, CN 2-12 intact, moves all 4s on command SKIN: No rash or jaundice noted. Medical Decision & Procedures ER Provider Diagnostic Interpretation: Radiology results as stated below per my review and radiologist interpretation: CHEST ONE VIEW PORTABLE CLINICAL HISTORY: Evaluate Fever/Sepsis dyspnea COMPARISON STUDY: 10/10/2017 FINDINGS: Postoperative changes right pulmonary apex. Superimposed right apical infiltrative process. Lungs otherwise remain clear. Diaphragms smooth but somewhat flattened. IMPRESSION: Small parenchymal infiltrate right pulmonary apex. Stable postoperative changes right pulmonary apex. This study should be repeated to ensure complete resolution of the right apical findings. The above report was generated using voice recognition software. It may contain grammatical, syntax or spelling errors. Electronically signed by: Marlon Clancy M.D. 12/16/2017 1:36 PM Dictated Date/Time: 12/16/2017 1:35 PM Laboratory Results 12/16/17 13:47 Red Blood Count 2.69, Mean Corpuscular Volume 88.1, Mean Corpuscular Hemoglobin 27.5, Mean Corpuscular Hemoglobin Concent 31.2, Mean Platelet Volume 10.5 12/16/17 13:47 Test 12/16/17 13:35 12/16/17 13:47 Influenza Type A Antigen Neg for Influ A (NEG) Influenza Type B Antigen Neg for Influ B (NEG) White Blood Count 3.49 K/uL (4.8-10.8) Red Blood Count 2.69 M/uL (4.2-5.4) Hemoglobin 7.4 g/dL (12.0-16.0) Hematocrit 23.7 % (37-47) Mean Corpuscular Volume 88.1 fL (80-100) Mean Corpuscular Hemoglobin 27.5 pg (25-34) Mean Corpuscular Hemoglobin Concent 31.2 g/dl (32-36) Platelet Count 126 K/uL (130-400) Mean Platelet Volume 10.5 fL (7.4-10.4) RDW Standard Deviation 49.9 fL (36.4-46.3) RDW Coefficient of Variation 15.6 % (11.5-14.5) Nucleated RBC Absolute Count (auto) 0.05 K/uL (0-0) Neutrophils % (Manual) 64.3 % Lymphocytes % (Manual) 11.3 % Monocytes % (Manual) 19.1 % Eosinophils % (Manual) 3.5 % Basophils % (Manual) 0.9 % Myelocytes % 0.9 % Nucleated Red Blood Cells % 1.3 % Neutrophils # (Manual) 2.24 K/uL (1.4-6.5) Total Absolute Neutrophils 2.24 K/uL (1.4-6.5) Lymphocytes # (Manual) 0.39 K/uL (1.2-3.4) Total Absolute Lymphocytes 0.39 K/uL (1.2-3.4) Monocytes # (Manual) 0.67 K/uL (0.11-0.59) Eosinophils # (Manual) 0.12 K/uL (0-0.5) Basophils # (Manual) 0.03 K/uL (0-0.2) Myelocytes # 0.03 K/uL (0-0) Toxic Granulation 2+ Giant Platelets 2+ Polychromasia 1+ Ovalocytes 1+ Prothrombin Time 9.8 SECONDS (9.0-12.0) Prothromb Time International Ratio 0.9 (0.9-1.1) Activated Partial Thromboplast Time 25.0 SECONDS (21.0-31.0) Partial Thromboplastin Ratio 1.0 Anion Gap 7.0 mmol/L (3-11) Est Creatinine Clear Calc Drug Dose 20.8 ml/min Estimated GFR () 25.3 Estimated GFR (Non- 21.8 BUN/Creatinine Ratio 15.9 (10-20) Calcium Level 9.0 mg/dl (8.5-10.1) Total Bilirubin 0.2 mg/dl (0.2-1) Direct Bilirubin < 0.1 mg/dl (0-0.2) Aspartate Amino Transf (AST/SGOT) 18 U/L (15-37) Alanine Aminotransferase (ALT/SGPT) 19 U/L (12-78) Alkaline Phosphatase 82 U/L (45-117) Troponin I < 0.015 ng/ml (0-0.045) Total Protein 6.7 gm/dl (6.4-8.2) Albumin 2.3 gm/dl (3.4-5.0) Laboratory results reviewed by me Medications Administered Medications (Trade) Dose Ordered Sig/Ede Route Start Time Stop Time Status Last Admin Dose Admin Sodium Chloride 1,000 ml @ 999 mls/hr Q1H1M STAT IV 12/16/17 13:17 12/16/17 14:17 DC 12/16/17 14:16 999 MLS/HR Sodium Chloride 1,000 ml @ 999 mls/hr Q1H1M STAT IV 12/16/17 14:52 12/16/17 15:52 DC 12/16/17 14:52 999 MLS/HR Ceftriaxone Sodium (Rocephin Inj) 1 gm NOW STAT IV 12/16/17 15:18 12/16/17 15:27 DC 12/16/17 16:40 1 GM Azithromycin (Zithromax Tab) 500 mg NOW ONCE PO 12/16/17 15:30 12/16/17 15:31 DC 12/16/17 16:40 500 MG ECG Per My Interpretation Indication: SOB/dyspnea, weakness Rate (beats per minute): 88 Rhythm: normal sinus Findings: LBBB (pattern noted), PVC (Ectopy noted with frequent PVCs.), T-wave inversion (Single TWI in V3), other (Wide QRS,) ED Course 1308: The patient was evaluated in room B8. A complete history and physical exam was performed. 1317: Ordered Sodium Chloride 1000 mL @ 999 mL/hr IV. 1452: Ordered Sodium Chloride 1000 mL @ 999 mL/hr IV. 1518: Ordered Rocephin 1 gm IV. 1530: Ordered Azithromycin 500 mg PO. 1538: I discussed the case with Dr. Alesha Bojorquez - [facility] Hospitalist. He will evaluate the patient for further treatment. Medical Decision The patient is a 77 year old white female with a past medical history of Anemia , AAA, Atrial fibrillation with rapid ventricular response, COPD with exacerbation, Lung mass with metastasis, and acute SOB (shortness of breath) who presents to the Emergency Room with complaints of constant generalized weakness that she has been experiencing for the past two weeks, since after her second chemotherapy treatment. The patient is currently being treated for lung cancer with multiple metastases. Differential diagnosis: Etiologies such as metabolic, infection, hypo/hyperglycemia, electrolyte abnormalities, cardiac sources, intracerebral event, toxicologic, neurologic, as well as others were entertained. Prior records were reviewed. Patient was seen and evaluated at the bedside. The patient was complaining some generalized weakness. Patient does have a prior history of lung CA status post radiation chemotherapy. Patient's most recent chemotherapy was 2 weeks prior. She was unable to obtain her chemotherapy secondary to her neutrophil count. Patient is chronically on 2 L. Patient does complain of a nonproductive cough. Patient is notably hypotensive although she is not tachycardic. No fever. Patient did have blood work, EKG, troponin, chest x-ray and was given IVF. Patient does have pancytopenia. Patient has an improved white blood cell count and neutrophil count. Patient's platelet count is greater than 120,000. Patient does have mild HPI baseline creatinine 1.3 today 2.1. Patient hemoglobin has continued to down trend. Unsure as to whether not this is related to her chemotherapy. Patient denies any bright red blood per rectum normal melenic stool. Patient's coag studies are normal. Patient's chest x- ray concerning for right upper lobe infiltrate. Given the patient's hypotension leukopenia and infiltrate concern for possible pneumonia. Patient was given Rocephin and azithromycin. Patient would benefit from inpatient treatment given patient has a curb 65 score of 3 which shows increased mortality rates as an outpatient. I did speak with the on-call hospitalist who agreed to further evaluate and treat patient. Medication Reconcilliation Current Medication List: was personally reviewed by me Blood Pressure Screening Patient's blood pressure: Normal blood pressure Consults Time Called: [phone] Consulting Physician: Dr. Alesha TRINIDAD Hospitalist Returned Call: [phone] I discussed the case with Dr. Alesha TRINIDAD Hospitalamrit. He will evaluate the patient for further treatment. Impression Primary Impression: Pneumonia Additional Impressions: AMPARO (acute kidney injury) Pancytopenia Scribe Attestation The scribe's documentation has been prepared under my direction and personally reviewed by me in its entirety. I confirm that the note above accurately reflects all work, treatment, procedures, and medical decision making performed by me. Departure Information Dispostion Being Evaluated By Hospitalist Referrals Teofilo Whalen PA-C (PCP) Patient Instructions My [facility] Problem Qualifiers Primary Impression: Pneumonia Pneumonia type: due to unspecified organism Laterality: right Lung location : upper lobe of lung Qualified Codes: J18.1 - Lobar pneumonia, unspecified organism
--- NOTE | 2017-12-16 13:37 | DIAGNOSTIC IMAGING REPORT ---
CHEST ONE VIEW PORTABLE CLINICAL HISTORY: Evaluate Fever/Sepsis dyspnea COMPARISON STUDY: 10/10/2017 FINDINGS: Postoperative changes right pulmonary apex. Superimposed right apical infiltrative process. Lungs otherwise remain clear. Diaphragms smooth but somewhat flattened. IMPRESSION: Small parenchymal infiltrate right pulmonary apex. Stable postoperative changes right pulmonary apex. This study should be repeated to ensure complete resolution of the right apical findings. The above report was generated using voice recognition software. It may contain grammatical, syntax or spelling errors. Electronically signed by: Marlon Clancy M.D. 12/16/2017 1:36 PM Dictated Date/Time: 12/16/2017 1:35 PM
[2017-12-16] MEDS ORDERED: VNTHFA/IN INH (13:38)
[2017-12-16] MEDS ORDERED: METO100T14 PO (13:38)
[2017-12-16 14:11] LABS: HEMATOCRIT 23.7 % (37-47); HEMOGLOBIN 7.4 g/dL (12.0-16.0); MEAN CELL VOLUME 88.1 fL (80-100); MEAN CORPUSCULAR HEMOGLOBIN 27.5 pg (25-34); MEAN CORPUSCULAR HGB CONC 31.2 g/dl (32-36); MEAN PLATELET VOLUME 10.5 fL (7.4-10.4); NUCLEATED RED BLOOD CELL ABS 0.05 K/uL (0-0); PLATELET COUNT 126 K/uL (130-400); RED CELL DISTRIBUTION WIDTH CV 15.6 % (11.5-14.5); RED CELL DISTRIBUTION WIDTH SD 49.9 fL (36.4-46.3); WHITE BLOOD COUNT 3.49 K/uL (4.8-10.8)
[2017-12-16 14:22] LABS: INFLUENZA B ANTIGEN Neg for Influ B (NEG)
[2017-12-16 14:26] LABS: INR 0.9 (0.9-1.1)
[2017-12-16 14:32] LABS: ALBUMIN 2.3 gm/dl (3.4-5.0); ALT/SGPT 19 U/L (12-78); BLOOD UREA NITROGEN 33 mg/dl (7-18); CARBON DIOXIDE 30 mmol/L (21-32); GLUCOSE 106 mg/dl (70-99); POTASSIUM 3.8 mmol/L (3.5-5.1); SODIUM 136 mmol/L (136-145)
[2017-12-16 14:36] LABS: ALKALINE PHOSPHATASE 82 U/L (45-117); AST/SGOT 18 U/L (15-37); TOTAL PROTEIN 6.7 gm/dl (6.4-8.2)
[2017-12-16] MEDS ORDERED: CEFTRIAXONE SOD INJ 1 GM ADDVIAL IV STA (15:18)
[2017-12-16] MEDS ORDERED: AZITHROMYCIN 250 MG TAB PO ONE (15:30)
--- NOTE | 2017-12-16 17:22 | History and Physical ---
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 Gaffney, COPD, chronic supplemental O2 use, remote smoking history, HTN, HLD, paroxysmal Afib with hx of RVR, diastolic CHF, frequent PACs, old LBBB, AAA, aortic stenosis, cardiomyopathy, who presents with worsening shortness of breath and cough over the past week. She reports that she had blood work done last week prior to a routinely scheduled chemotherapy and at that time was unable to proceed with chemo due to low white blood counts. Her last chemo session was on 12/04. She notes that she did have a low-grade fever of 101 the morning she had her labs drawn, however did not present to the ER. Since then she has had increased sweats and chills over the past week, poor oral intake and admits to lightheadedness whenever she goes from a sit to standing position. Patient notes progressive worsening shortness of breath with minimal activity and cough with minimally productive clear sputum. Her daughter who is present at bedside has been staying with her the past 3 days and reports that she does appear to be weaker and short of breath. They increased her home O2 up to 2.5 L last evening which seemed to help pt feel better. The patient was acutely constipated without BM x 6 days, so she took a series of 6 stool softeners, 2 laxatives and administered 2 enemas to herself last evening. Since then she has had multiple formed bowel movements. she denies any dark or tarry bowel movements, or bright red blood per rectum. No abdominal pain, no nausea or vomiting. Here in the ER the pt had BP of 82/58, HR=90, with adequate sats on 3L. CXR reviewed showing R apical lesion, consistent with her lung carcinoma Past Medical/Surgical History Medical Problems: (1) AAA (abdominal aortic aneurysm) (2) Acute respiratory failure (3) Anemia (4) Aortic stenosis (5) Atrial fibrillation with rapid ventricular response (6) Cardiomyopathy (7) COPD (chronic obstructive pulmonary disease) (8) shortness of breath (9) Depression (10) Diastolic CHF (11) HLD (hyperlipidemia) (12) HTN (hypertension) (13) Hypothyroidism (14) LBBB (left bundle branch block) (15) Paroxysmal A-fib Family History Diabetes mellitus (DM) FH: HTN (hypertension) FH: cancer FH: heart disease No pertinent family history Social History Smoking Status: Former Smoker Drug Use: none Marital Status: Housing status: lives alone Occupational Status: retired Allergies Coded Allergies: Amoxicillin (Verified Allergy, Intermediate, HIVES INSIDE AND OUT, 12/16/17 ) Nickel (Verified Allergy, Intermediate, RASH, 12/16/17) Levofloxacin (Verified Allergy, Unknown, unkown, 12/16/17) Penicillins (Verified Allergy, Unknown, unknown, 12/16/17) Home Medications Scheduled Albuterol Hfa (Ventolin Hfa), 2-4 PUFFS INH Q6H Atorvastatin (Lipitor), 80 MG PO HS Clopidogrel (Plavix), 75 MG PO HS Furosemide (Lasix), 40 MG PO DAILY Levothyroxine Sodium (Levothyroxine Sodium), 50 MCG PO QAM Lisinopril (Prinivil), 40 MG PO DAILY Metoprolol Succinate (Toprol Xl), 1 TAB PO DAILY Mometasone Furoate-Formoterol (Dulera 100/5 Mcg), 1 AER INH DAILY Mometasone Furoate-Formoterol (Dulera 100/5 Mcg), 2 PUFFS INH BID Potassium Ext Rel (Klor-Con), 20 MEQ PO QPM Tiotropium [place] (Spiriva Respimat), 1 PUFF INH DAILY Venlafaxine Hcl (Effexor Xr), 1 CAP PO DAILY [Magnesium], 535 MG PO BID Scheduled PRN Albuterol Sulf (Proventil 0.083% 2.5MG/3ML), 2.5 MG INH Q4-6H PRN for Shortness of Breath Alprazolam (Xanax), 1 MG PO TID PRN for Anxiety/Insomnia Ondansetron Hcl (Zofran), 8 MG PO Q8 PRN for Nausea Prochlorperazine Maleate (Compazine), 10 MG PO Q6-8H PRN for Nausea or Vomiting Review of Systems Constitutional: See HPI. no current fever, sweats or chills Eyes: No diplopia, no worsening or blurred vision ENT: normal hearing, no trouble swallowing Respiratory: See HPI Cardiovascular: No chest pain, pressure, tightness or palpitations Abdomen: No pain, nausea, vomiting, diarrhea, + constipation s/p aggressive home bowel regimen Musculoskeletal: No joint pain, calf pain, swelling Neurologic: No weakness, numbness/tingling, or balance problems Psychiatric: No anxiety or depression Skin: No rash or itch Physical Exam Vital Signs Date Time Temp Pulse Resp B/P (MAP) Pulse Ox O2 Delivery O2 Flow Rate FiO2 12/16/17 16:30 88 18 114/50 99 Room Air 12/16/17 15:13 82 18 103/62 99 Nasal Cannula 2.0 12/16/17 13:43 100 Room Air 12/16/17 13:38 92 12/16/17 12:57 36.4 90 18 82/58 91 Nasal Cannula 3.0 General: awake, alert, no apparent distress Head: Normocephalic, atraumatic ENT: PERRL, EOMI, no pharyngeal exudate, mucous membranes moist Chest: On 2 L via NC, diminished breath sounds in the right apex, middle and lower lobes. Faint inspiratory and expiratory wheeze in the left delgado Cardiac: Regular rate and rhythm, no murmur, no JVD, normal peripheral pulses, good capillary refill Abdominal: NABS x 4 quadrants, soft, nontender to palpation, no rebound, guarding or tenderness Extremities: Normal inspection, no peripheral edema or erythema, calfs nontender to palpation Psych: Normal mood and affect Neuro: AAO x 3, strength intact bilaterally and related 5/5, no motor deficits, speech is clear, no peripheral sensory deficits Diagnostics Laboratory Results Results Past 24 Hours Test 12/16/17 13:35 12/16/17 13:41 12/16/17 13:47 Range/Units Influenza Type A Antigen Neg for Influ A NEG Influenza Type B Antigen Neg for Influ B NEG White Blood Count 3.49 4.8-10.8 K/uL Red Blood Count 2.69 4.2-5.4 M/uL Hemoglobin 7.4 12.0-16.0 g/dL Hematocrit 23.7 37-47 % Mean Corpuscular Volume 88.1 80-100 fL Mean Corpuscular Hemoglobin 27.5 25-34 pg Mean Corpuscular Hemoglobin Concent 31.2 32-36 g/dl Platelet Count 126 130-400 K/uL Mean Platelet Volume 10.5 7.4-10.4 fL RDW Standard Deviation 49.9 36.4-46.3 fL RDW Coefficient of Variation 15.6 11.5-14.5 % Nucleated RBC Absolute Count (auto) 0.05 0-0 K/uL Neutrophils % (Manual) 64.3 % Lymphocytes % (Manual) 11.3 % Monocytes % (Manual) 19.1 % Eosinophils % (Manual) 3.5 % Basophils % (Manual) 0.9 % Myelocytes % 0.9 % Nucleated Red Blood Cells % 1.3 % Neutrophils # (Manual) 2.24 1.4-6.5 K/uL Total Absolute Neutrophils 2.24 1.4-6.5 K/uL Lymphocytes # (Manual) 0.39 1.2-3.4 K/uL Total Absolute Lymphocytes 0.39 1.2-3.4 K/uL Monocytes # (Manual) 0.67 0.11-0.59 K/uL Eosinophils # (Manual) 0.12 0-0.5 K/uL Basophils # (Manual) 0.03 0-0.2 K/uL Myelocytes # 0.03 0-0 K/uL Toxic Granulation 2+ Giant Platelets 2+ Polychromasia 1+ Ovalocytes 1+ Prothrombin Time 9.8 9.0-12.0 SECONDS Prothromb Time International Ratio 0.9 0.9-1.1 Activated Partial Thromboplast Time 25.0 21.0-31.0 SECONDS Partial Thromboplastin Ratio 1.0 Sodium Level 136 136-145 mmol/L Potassium Level 3.8 3.5-5.1 mmol/L Chloride Level 99 98-107 mmol/L Carbon Dioxide Level 30 21-32 mmol/L Anion Gap 7.0 3-11 mmol/L Blood Urea Nitrogen 33 7-18 mg/dl Creatinine 2.10 0.60-1.20 mg/dl Est Creatinine Clear Calc Drug Dose 20.8 ml/min Estimated GFR () 25.3 Estimated GFR (Non- 21.8 BUN/Creatinine Ratio 15.9 10-20 Random Glucose 106 70-99 mg/dl Calcium Level 9.0 8.5-10.1 mg/dl Total Bilirubin 0.2 0.2-1 mg/dl Direct Bilirubin < 0.1 0-0.2 mg/dl Aspartate Amino Transf (AST/SGOT) 18 15-37 U/L Alanine Aminotransferase (ALT/SGPT) 19 12-78 U/L Alkaline Phosphatase 82 45-117 U/L Troponin I < 0.015 0-0.045 ng/ml Total Protein 6.7 6.4-8.2 gm/dl Albumin 2.3 3.4-5.0 gm/dl Microbiology Results 12/16/17 Blood Culture, Received Pending 12/16/17 Blood Culture, Received Pending 12/16/17 Urine Culture, Narciso Batch Pending Impression Assessment and Plan This is a 77 yo F with PMhx of 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 Gaffney, COPD, chronic supplemental O2 use, remote smoking history, HTN, HLD, paroxysmal Afib with hx of RVR, diastolic CHF, frequent PACs, old LBBB, AAA, aortic stenosis, cardiomyopathy, who presents with worsening shortness of breath and cough over the past week. Pneumonia of the RUL in the setting of RUL SCLC COPD Shortness of breath - Admit to tele - patient chronically wears 2 L of O2 at baseline, currently on 3 L - Received azithromycin and ceftriaxone in the ER, will continue at this time. - Continue supportive care wtih duo nebs, incentive spirometry, flutter, Mucinex , O2 protocol, sputum culture - CXR reviewed -if changes in respiratory status and would repeat a 2 view - s/p 2 L of normal saline in the ER, hold on further fluids at this time with history of significantly reduced EF -if any worsening shortness of breath overnight would repeat a 2 view chest x-ray and make sure the patient is not volume overloaded - Continue Spiriva, Dulera as outpatient regimen - Will consult pulmonary medicine for further recommendations - Hold on steroids at this time in the setting of carcinoma - Has received 2 cycles of chemotherapy so far, last on 12/04. Pt does not have a mediport. Follows with Dr. Gaffney as an outpatient Anemia of Chronic disease, possible worsening in the setting of acute chemotherapy - Hgb 7.4, baseline appears to be around 9-10 - We will obtain a blood consent in the setting that transfusion is required - Follow with a.m. CBC - guiac all stools with recent aggressive bowel regimen which was self administered last night- pt is on plavix Hypertension Hyperlipidemia Cardiomyopathy with reduced EF of 25-30 % with last Echo 09/04/17 Diastolic CHF Aortic stenosis Paroxysmal A. fib LBBB -Hold lisinopril with slight bump in Cr., will continue metoprolol succinate 200 milligrams daily, continue Plavix, -Patient follows with Dr. Gallego as an outpatient - With reduced EF and hx of prolonged tachycardia, cardiology was considering placing a biventricular ICD. However was then diagnosed with lung cancer as above therefore underwent chemotherapy first. -Continue atorvastatin 40 mg daily AMPRAO on CKD stage III - Baseline Cr appears to be 1.2-1.3, Cr currently elevated at 2.1 - s/p 2 L NSS in the ER, hold on further fluids in the setting of significantly reduced EF- follow am PRP Hx AAA - Last CT abd/pelvis shows this measures 5.8x4.8 cm on 08/04/17 - pt follows with Dr. Reinoso from [facility] and was told that she needs surgery but was planning on having a pacemaker placed prior to this surgical procedure. Depression - continue Effexor 75 mg daily DVT ppx: Teds, scds, plavix, no further chemical anticoagulation in the setting of anemia. CODE STATUS: DNR Disposition: Patient from home, lives alone, PT/OT PRESTON perez to assist with dc planning I personally interviewed and examined the patient. I agree with history of present illness and physical exam mentioned above, I also performed my own history taking and examination. Past medical history and review of system has been obtained by myself I reviewed all pertinent labs and studies Reviewed current medications I discussed and formulated of the assessment and plan mentioned above. Please refer to the Summary mentioned below. 77-year-old female with past medical history of hypertension, dyslipidemia, paroxysmal atrial fibrillation and chronic diastolic congestive heart failure who was diagnosed with S C LC Presented to the hospital with shortness of breath and found to have healthcare associated pneumonia We will admit to telemetry, broad-spectrum antibiotics, blood culture and sputum culture, urine Legionella check. General Appearance: not in acute distress Eyes: normal Sclerae, extraocular muscle intact ENT: hearing grossly normal Neck: supple Respiratory/Chest: Decreased air entry bilaterally with scattered rhonchi Cardiovascular: regular rate, rhythm, no murmur Abdomen: non tender, soft, no masses Extremities: no edema Neurologic/Psychiatric: Awake alert oriented times place and person moves all extremities sensation intact cranial nerves II-12 appear to be intact Skin: normal color, warm/dry, no rash Mariela Bojorquez MD, [facility] Resuscitation Status VTE Prophylaxis Will order VTE Prophylaxis: Yes Reason for no VTE drug order: Contraindicated
[2017-12-16 17:35] VITALS: O2SAT 99; Ht 160 cm; Wt 70.2 kg
[2017-12-16] MEDS ORDERED: ONDANSETRON INJ 2 MG/ML 2 ML VIAL IV PRN (18:00)
[2017-12-16] MEDS ORDERED: ACETAMINOPHEN 325 MG TAB PO PRN (18:00)
[2017-12-16] MEDS ORDERED: POLYETHYLENE (MIRALAX) 17 GM PACK PO PRN (18:00)
[2017-12-16] MEDS ORDERED: ONDANSETRON 8 MG TAB PO PRN (18:30)
[2017-12-16] MEDS ORDERED: MOME100A INH (18:58)
[2017-12-16] MEDS ORDERED: TIOT1SPR INH (18:58)
[2017-12-16] MEDS ORDERED: METO200T31 PO (19:15)
[2017-12-16] MEDS ORDERED: VENL75CA PO (19:15)
[2017-12-16] MEDS: ALBUT/IPRATROP 3MG/0.5MG NEB 3 ML VIAL INH SCH (19:53)
[2017-12-16 19:55] VITALS: PULSE 90; O2SAT 100
[2017-12-16 20:01] VITALS: BP 98/66; PULSE 85; TEMP 36.4; O2SAT 99
[2017-12-16 20:06] VITALS: O2SAT 100
[2017-12-16 20:27] VITALS: BP 94/60; PULSE 88; TEMP 36.7; O2SAT 99
[2017-12-16] MEDS ORDERED: HEPARIN SOD 5000 UNIT/0.5 ML CARP SQ SCH (21:00)
[2017-12-16] MEDS: ATORVASTATIN 40 MG TAB PO SCH (21:54)
[2017-12-16] MEDS: CLOPIDOGREL BISULFATE 75 MG TAB PO SCH (21:54)
[2017-12-16] MEDS: GUAIFENESIN 600 MG TABCR PO SCH (21:54)
[2017-12-17] VITALS (10 sets, daily range): BP systolic 92–127; BP diastolic 52–77; PULSE 85–99; TEMP 36.4–37.4; O2SAT 96–100
[2017-12-17] MEDS: ALPRAZOLAM 0.5 MG TAB PO PRN ×3 (00:06→23:38)
[2017-12-17] MEDS: LEVOTHYROXINE 50 MCG TAB PO SCH (05:55)
[2017-12-17] MEDS: DULERA: ORDER AWAITING ACTION SCH ×4 (07:21→22:21)
[2017-12-17 07:34] LABS: HEMATOCRIT 21.4 % (37-47); HEMOGLOBIN 6.5 g/dL (12.0-16.0); MEAN CELL VOLUME 89.5 fL (80-100); MEAN CORPUSCULAR HEMOGLOBIN 27.2 pg (25-34); MEAN CORPUSCULAR HGB CONC 30.4 g/dl (32-36); MEAN PLATELET VOLUME 10.1 fL (7.4-10.4); PLATELET COUNT 133 K/uL (130-400); RED CELL DISTRIBUTION WIDTH CV 15.7 % (11.5-14.5); RED CELL DISTRIBUTION WIDTH SD 50.7 fL (36.4-46.3); WHITE BLOOD COUNT 3.26 K/uL (4.8-10.8)
[2017-12-17] MEDS: TIOTROPIUM BROMIDE 5 PUFF/90 MCG INH INH SCH (07:35)
[2017-12-17] MEDS: GUAIFENESIN 600 MG TABCR PO SCH ×2 (07:35→20:48)
[2017-12-17] MEDS: VENLAFAXINE HCL XR 75 MG CAPXR PO SCH (07:35)
[2017-12-17] MEDS: METOPROLOL SUCC 50MG EXT REL TAB PO SCH (07:36)
[2017-12-17] MEDS: ALBUT/IPRATROP 3MG/0.5MG NEB 3 ML VIAL INH SCH (07:37)
[2017-12-17 07:41] LABS: BASO % 0.6 %; BASO ABS # 0.02 K/uL (0-0.2); EOS % 1.5 %; EOS ABS # 0.05 K/uL (0-0.5); IG# 0.09 K/uL (0.00-0.02); LYMPH % 20.2 %; LYMPH ABS # 0.66 K/uL (1.2-3.4); MONO % 16.6 %; MONO ABS # 0.54 K/uL (0.11-0.59); NEUT % 58.3 %
--- NOTE | 2017-12-17 08:50 | Progress Note ---
Subjective Date of Service: Dec 17, 2017. Subjective Pt evaluation today including: conversation w/ patient 77 yo female with complex history. She is currently resting comfortably. Patient denies any shortness of breath and worsening cough at this time. I was informed by Nurse that her hemoglobin was below 7. I obtained inform consent today as there was not one in the chart. I discussed risk and benefits of transfusion. Patient understood and was able to repeat them and showed understanding. Problem List Medical Problems: (1) AMPARO (acute kidney injury) Status: Acute (2) AMPARO (acute kidney injury) Status: Acute (3) Bronchitis Status: Acute (4) COPD (chronic obstructive pulmonary disease) Status: Acute (5) COPD exacerbation Status: Acute (6) Hypokalemia Status: Acute (7) Hypomagnesemia Status: Acute (8) Multifocal atrial tachycardia Status: Acute (9) Pancytopenia Status: Acute (10) Pneumonia Status: Acute (11) Rapid atrial fibrillation Status: Acute (12) Shortness of breath Status: Acute Review of Systems Constitutional: No fever, No chills Eyes: No worsening of vision ENT: No hearing loss Respiratory: + cough Cardiac: No chest pain Breast: No breast lump Abdomen: No pain, No nausea Musculoskeletal: + joint pain Neurologic: No memory loss Psychiatric: No depression symptoms Endo: + fatigue Skin: No rash All Other Systems: Reviewed and Negative Medications Current Inpatient Medications Medications (Trade) Dose Ordered Sig/Ede Route Start Time Stop Time Status Last Admin Dose Admin Acetaminophen (Tylenol Tab) 650 mg Q4H PRN PO 12/16/17 18:00 01/15/18 17:59 12/17/17 16:14 650 MG Ondansetron HCl (Zofran Inj) 4 mg Q6H PRN IV 12/16/17 18:00 01/15/18 17:59 Polyethylene (Miralax Powder Packet) 17 gm DAILY PRN PO 12/16/17 18:00 01/15/18 17:59 Alprazolam (Xanax Tab) 1 mg TID PRN PO 12/16/17 18:30 01/15/18 18:29 12/17/17 23:38 1 MG Atorvastatin Calcium (Lipitor Tab) 80 mg HS PO 12/16/17 21:00 01/15/18 20:59 12/17/17 20:48 80 MG Clopidogrel Bisulfate (plAVix TAB) 75 mg HS PO 12/16/17 21:00 01/15/18 20:59 12/17/17 20:48 75 MG Levothyroxine Sodium (Synthroid Tab) 50 mcg DAILYBB PO 12/17/17 06:30 01/16/18 06:59 12/18/17 06:24 50 MCG Metoprolol Succinate (Toprol Xl Tab) 200 mg DAILY PO 12/17/17 09:00 01/16/18 08:59 12/17/17 07:36 200 MG Ondansetron HCl (Zofran Tab) 8 mg Q8 PRN PO 12/16/17 18:30 01/15/18 18:29 Venlafaxine HCl (effeXOR EXTENDED REL CAP) 75 mg DAILY PO 12/17/17 09:00 01/16/18 08:59 12/17/17 07:35 75 MG Guaifenesin (Mucinex Contr Rel Tab) 1,200 mg Q12 PO 12/16/17 21:00 01/15/18 20:59 12/17/17 20:48 1,200 MG Miscellaneous Information (Order Awaiting Action) 1 ea QS N/A 12/17/17 00:00 01/16/18 00:00 Tiotropium [place] (Spiriva Handihaler Inhaler) 1 puff QAM INH 12/17/17 09:00 01/16/18 08:59 12/17/17 07:35 1 PUFF Azithromycin 500 mg/Dextrose 255 ml @ 125 mls/hr DAILY@1800 IV 12/17/17 18:00 12/23/17 17:59 12/17/17 18:16 125 MLS/HR Ceftriaxone Sodium 1 gm/ Dextrose 50 ml @ 100 mls/hr Q24H IV 12/17/17 16:00 12/23/17 15:59 12/17/17 16:14 100 MLS/HR Albuterol/ Ipratropium (Combivent Respimat Inh) 1 puffs QID INH 12/17/17 13:00 01/16/18 12:59 12/17/17 20:48 1 PUFFS Objective Vital Signs Date Time Temp Pulse Resp B/P (MAP) Pulse Ox O2 Delivery O2 Flow Rate FiO2 12/17/17 07:41 37.4 96 18 103/65 (78) 100 Nasal Cannula 2.0 12/17/17 07:37 85 16 96 Nasal Cannula 2.0 12/17/17 05:06 37.3 99 20 96/52 (67) 97 2.0 12/17/17 04:00 Nasal Cannula 2.0 12/17/17 00:12 37.0 94 20 94/62 (73) 97 2.0 12/17/17 00:00 Nasal Cannula 2.0 12/16/17 20:27 36.7 88 20 94/60 (71) 99 2.0 12/16/17 20:06 100 Nasal Cannula 2.0 12/16/17 20:01 36.4 85 22 98/66 (77) 99 Nasal Cannula 2.0 12/16/17 19:55 90 16 100 Nasal Cannula 12/16/17 18:44 82 20 114/61 100 12/16/17 18:30 82 20 114/61 100 Nasal Cannula 2.0 12/16/17 17:39 91 12/16/17 17:35 99 Nasal Cannula 2.0 12/16/17 16:30 88 18 114/50 99 Room Air 12/16/17 15:13 82 18 103/62 99 Nasal Cannula 2.0 12/16/17 13:43 100 Room Air 12/16/17 13:38 92 12/16/17 12:57 36.4 90 18 82/58 91 Nasal Cannula 3.0 Physical Exam General Appearance: WD/WN, no apparent distress Eyes: normal inspection ENT: normal ENT inspection Neck: supple, no adenopathy Respiratory/Chest: chest non-tender, + decreased breath sounds (especially in right upper lobe) Cardiovascular: regular rate, rhythm, no JVD Abdomen: normal bowel sounds, non tender, soft Extremities: normal range of motion, non-tender Neurologic/Psychiatric: alert, oriented x 3 Skin: normal color Lymphatic: no adenopathy Laboratory Results Last 24 Hours Test 12/16/17 13:35 12/16/17 13:47 12/17/17 06:28 Influenza Type A Antigen Neg for Influ A Influenza Type B Antigen Neg for Influ B White Blood Count 3.49 K/uL 3.26 K/uL Red Blood Count 2.69 M/uL 2.39 M/uL Hemoglobin 7.4 g/dL 6.5 g/dL Hematocrit 23.7 % 21.4 % Mean Corpuscular Volume 88.1 fL 89.5 fL Mean Corpuscular Hemoglobin 27.5 pg 27.2 pg Mean Corpuscular Hemoglobin Concent 31.2 g/dl 30.4 g/dl Platelet Count 126 K/uL 133 K/uL Mean Platelet Volume 10.5 fL 10.1 fL RDW Standard Deviation 49.9 fL 50.7 fL RDW Coefficient of Variation 15.6 % 15.7 % Nucleated RBC Absolute Count (auto) 0.05 K/uL Neutrophils % (Manual) 64.3 % Lymphocytes % (Manual) 11.3 % Monocytes % (Manual) 19.1 % Eosinophils % (Manual) 3.5 % Basophils % (Manual) 0.9 % Myelocytes % 0.9 % Nucleated Red Blood Cells % 1.3 % Neutrophils # (Manual) 2.24 K/uL Total Absolute Neutrophils 2.24 K/uL Lymphocytes # (Manual) 0.39 K/uL Total Absolute Lymphocytes 0.39 K/uL Monocytes # (Manual) 0.67 K/uL Eosinophils # (Manual) 0.12 K/uL Basophils # (Manual) 0.03 K/uL Myelocytes # 0.03 K/uL Toxic Granulation 2+ 2+ Giant Platelets 2+ Polychromasia 1+ Ovalocytes 1+ Prothrombin Time 9.8 SECONDS 10.0 SECONDS Prothromb Time International Ratio 0.9 1.0 Activated Partial Thromboplast Time 25.0 SECONDS Partial Thromboplastin Ratio 1.0 Sodium Level 136 mmol/L Potassium Level 3.8 mmol/L Chloride Level 99 mmol/L Carbon Dioxide Level 30 mmol/L Anion Gap 7.0 mmol/L Blood Urea Nitrogen 33 mg/dl Creatinine 2.10 mg/dl Est Creatinine Clear Calc Drug Dose 20.8 ml/min Estimated GFR () 25.3 Estimated GFR (Non- 21.8 BUN/Creatinine Ratio 15.9 Random Glucose 106 mg/dl Calcium Level 9.0 mg/dl Total Bilirubin 0.2 mg/dl Direct Bilirubin < 0.1 mg/dl Aspartate Amino Transf (AST/SGOT) 18 U/L Alanine Aminotransferase (ALT/SGPT) 19 U/L Alkaline Phosphatase 82 U/L Troponin I < 0.015 ng/ml Total Protein 6.7 gm/dl Albumin 2.3 gm/dl Neutrophils (%) (Auto) 58.3 % Lymphocytes (%) (Auto) 20.2 % Monocytes (%) (Auto) 16.6 % Eosinophils (%) (Auto) 1.5 % Basophils (%) (Auto) 0.6 % Neutrophils # (Auto) 1.90 K/uL Lymphocytes # (Auto) 0.66 K/uL Monocytes # (Auto) 0.54 K/uL Eosinophils # (Auto) 0.05 K/uL Basophils # (Auto) 0.02 K/uL Immature Granulocyte % (Auto) 2.8 % Immature Granulocyte # (Auto) 0.09 K/uL Large Platelets 1+ Hypochromasia PRESENT Anisocytosis PRESENT Assessment and Plan This is a 77 yo F with PMhx of 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 Gaffney, COPD, chronic supplemental O2 use, remote smoking history, HTN, HLD, paroxysmal Afib with hx of RVR, diastolic CHF, frequent PACs, old LBBB, AAA, aortic stenosis, cardiomyopathy, who presents with worsening shortness of breath and cough over the past week. Hospital acquired Pneumonia of the RUL in the setting of RUL SCLC COPD Shortness of breath -Patient has shown improvement clinically. - patient chronically wears 2 L of O2 at baseline, currently on 3 L - Received azithromycin and ceftriaxone in the ER, will continue at this time. - will obtain procalcitonin - Continue supportive care with duo nebs, incentive spirometry, flutter, Mucinex , O2 protocol, sputum culture -Patient does not show evidence of fluid overload - Continue Spiriva, Dulera as outpatient regimen - Continue to hold steroids. Small Lung Cell Carcinoma - Has received 2 cycles of chemotherapy so far, last on 12/04. Pt does not have a mediport. Follows with Dr. 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 -Will discuss with her regarding goals of care Anemia of Chronic disease, possible worsening in the setting of acute chemotherapy - Hemglobin dropped to below 7 - Obtained consent today - Discussed risks and benefits. Patient showed understanding - will transfuse one unit. - Likely hemodilutional - Follow with a.m. CBC - guiac all stools with recent aggressive bowel regimen which was self administered last night- pt is on plavix Borderline hypotension will hold lisinopril and held metoprolol today. will monitor her BP will likely respond with transfusion Hypertension Hyperlipidemia Cardiomyopathy with reduced EF of 25-30 % with last Echo 09/04/17 Diastolic CHF Aortic stenosis Paroxysmal A. fib LBBB -Hold lisinopril with slight bump in Cr.continue Plavix, -Patient follows with Dr. Gallego as an outpatient - With reduced EF and hx of prolonged tachycardia, cardiology was considering placing a biventricular ICD. However was then diagnosed with lung cancer as above therefore underwent chemotherapy first. -Continue atorvastatin 40 mg daily AMPARO on CKD stage III - Baseline Cr appears to be 1.2-1.3, Cr currently elevated at 2.1 -No repeat labs today - will recheck tomorrow Hx AAA - Last CT abd/pelvis shows this measures 5.8x4.8 cm on 08/04/17 - pt follows with Dr. Reinoso from [facility] and was told that she needs surgery but was planning on having a pacemaker placed prior to this surgical procedure. Depression - continue Effexor 75 mg daily DVT ppx: Teds, scds, plavix, no further chemical anticoagulation in the setting of anemia. CODE STATUS: DNR Disposition: Patient from home, lives alone, PT/OT PRESTON perez to assist with dc planning I spent 50 minutes on the management of this case. Continued [facility] stay due to: abnormal vital signs Discharge planning: uncertain
--- NOTE | 2017-12-17 10:12 | Pulmonary Consultation ---
History General Date of Service: Dec 17, 2017. Stated Complaint: Pneumonia HPI The patient is a 77 year old female who presents to [facility] with complaints of Pneumonia. The patient's primary care provider is Teofilo Whalen PA-C. 76-year-old female with a complex past pulmonary history admitted with progressive fatigue, low-grade fever, recent history of neutropenia, some mild chills and night sweats over the previous week and poor oral intake and her continued dyspnea on exertion with minimal activity. During our conversation the patient noted she is at her baseline respiratory status and has had no real increasing shortness of breath over the previous week. She does note increasing lethargy and fatigue with associated right posterior apical thoracic discomfort consistent but denies currently: Fevers, productive cough, change in her chronic cough, classic cardiac chest pain, unintentional weight loss. 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%, supplemental oxygen 3 liters/ minute, atrial fibrillation/RVR, LBBB, CHF EF=35%, grade 3 diastolic dysfunction , small cell lung carcinoma (s/p chemo:[employer]-16 & Cisplatin/XRT-4500cGy) ( recurrence right paratracheal region 7000cGy) (recurrence with metastatic disease initiated on Topotecan), radiation esophagitis, thrombocytopenia/anemia , hypothyroid, carotid stenosis, history DVT, hypertension, AAA, former smoker 60-80 pack-year history quit 2006 Current in hospital workup H/H: 04/28 PLT: 126K BUN/Cr: 33/2.10 ALB: 2.3 CXR: RUL/apical infiltrative process appears to be increased from CXR performed 10/10/2017 EKG: sinus rhythm rate 88, with PVC and LBBB Microbiology pending: Expectorated sputum, blood x2, urine Medications 1. Azithromycin 500 mg daily 2. Ceftriaxone 1 gram daily 3. Spiriva 1 puff daily 4. Plavix 75 mg daily 5. Mucinex 1200 mg b.i.d. 6. Duo nebs q.i.d. Previous workup CT of the chest with IV contrast 11/10/2017 compared to 08/04/2017 Emphysematous changes Multiple hepatic masses possible metastatic disease Enlarge perivascular mediastinal lymphadenopathy Enlarging 7 mm left upper lobe pulmonary nodule suspicious for metastatic disease Developing right upper lobe nodular airspace opacity largest 29 mm Small right-sided pleural effusion Active Problems 1. Small cell lung carcinoma (cT1,N0,M0) stage 1A) a. RUL--XRT completed 06/26/2016 receiving 4500 cGy b. Right paratracheal recurrenc 03/19/2017: XRT 06/16/[address] chest abdomen and pelvis 11/10/2017: Suggesting progression of disease d. Initiation of chemotherapy 11/27/2017 Topotecan 2. Acute sinusitis 3. Allergic rhinitis 4. Aneurysm of abdominal aorta 5. Aortic stenosis (minimal via echocardiography) 6. Bullous emphysema 7. Cardiomyopathy 8. Paroxysmal SVT/Atrial fibrillation with RVR 9. Carotid atherosclerosis 10. Very severe COPD (FEV1: 28%) 11. Chronic pain 12. Constipation 13. Dependence on supplemental oxygen (3L/min) 14. Depression 15. Diastolic dysfunction 16. Edema 17. Generalized anxiety disorder 18. Herpes zoster 19. Hyperlipidemia 20. Hypersomnolence 21. Hypertension 22. Hypokalemia 23. Hypothyroidism 24. Iron deficiency anemia 25. LBBB (left bundle branch block) 26. Lung cancer ( 27. Lung nodule, solitary (R91.1) 28. Magnesium deficiency (E61.2) 29. Paroxysmal atrial tachycardia (I47.1) 30. Pericardial effusion (I31.3) 31. Pulmonary nodule (R91.1) 32. Renal insufficiency (N28.9) 33. Small cell carcinoma of lung (C34.90) 34. SOB (shortness of breath) on exertion (R06.02) 35. Visit for screening mammogram (Z12.31) Past Medical History 1. History of Acute deep vein thrombosis of distal leg (I82.4Z9) Surgical History 1. Cholecystectomy 2. ENB/Bronchoscopy (04/22/16) 3. Tonsillectomy With Adenoidectomy Family History Arthritis, cancer, hypertension, diabetes, heart disease, arthritis, Social History Always uses seat belt Social Drinker Former smoker, stopped smoking in distant past Marital History - Occupation: Retired Current Meds 1. Lisinopril 40 MG Oral Tablet; TAKE ONE (1) TABLET BY MOUTH ONCE DAILY; 2. Metoprolol Succinate ER 200 MG Oral Tablet Extended Release 24 Hour; TAKE 1 TABLET 3. Clopidogrel Bisulfate 75 MG Oral Tablet; TAKE 1 TABLET DAILY 4. Albuterol 90 MCG/ACT AERS; INHALE 2 PUFFS EVERY 4 HOURS NEEDED; 5. Albuterol Sulfate (2.5 MG/3ML) 0.083% Inhalation Nebulization Solution; USE 1 UNIT 6. Dulera 100-5 MCG/ACT Inhalation Aerosol; INHALE 2 PUFFS TWICE DAILY. RINSE 7. Spiriva Respimat 2.5 MCG/ACT Inhalation Aerosol Solution; INHALE 1 PUFFS Daily; Last 8. Syringe 25G X 5/8" 3 ML; USE DIRECTED with ZOster vaccine; 9. Sennosides-Docusate Sodium 8.6-50 MG Oral Tablet; Take 1 tablet three times daily; 10. Benzonatate 100 MG Oral Capsule; TAKE 1 CAPSULE 3 TIMES DAILY; 11. Clindamycin HCl - 300 MG Oral Capsule; TAKE 1 CAPSULE EVERY 6 HOURS DAILY; 12. Oxygen 3L/min 13. Venlafaxine HCl ER 75 MG Oral Capsule Extended Release 24 Hour; TAKE 1 CAPSULE 14. ALPRAZolam 1 MG Oral Tablet; TAKE 1 TABLET 3 TIMES DAILY NEEDED; 15. Zoster (Zostavax); Inject as directed; 16. Atorvastatin Calcium 80 MG Oral Tablet; TAKE ONE (1) TABLET BY MOUTH AT 17. Furosemide 40 MG Oral Tablet; TAKE 1 TABLET as needed if gain 3 to 5 pounds in 1 18. Levothyroxine Sodium 50 MCG Oral Tablet; TAKE ONE (1) TABLET BY MOUTH EVERY 19. Mag64 535 (64 Mg) MG Oral Tablet Extended Release; TAKE 2 TABLETS BY MOUTH Allergies 1. Amoxicillin TABS 2. Levaquin TABS 3. Penicillins Immunizations Influenza --- Series1: 15-Jul-2012; Series2: 16-Aug-2015 PCV --- Series1: 15-Dec-2015 PPD --- Series1: 16-Aug-2015 Historian: patient, EMS Review of Systems Constitutional: reports: malaise, weakness Eyes: reports: no symptoms ENT: reports: no symptoms Cardiovascular: reports: as stated in HPI Respiratory: reports: as stated in HPI Gastrointestinal: reports: no symptoms Genitourinary - Female: reports: no symptoms Musculoskeletal: reports: as stated in HPI Integumentary: reports: no symptoms Neurologic: reports: no symptoms Psychiatric: reports: depression Endocrine: no symptoms Hematologic / Lymphatic: no symptoms Allergic / Immunologic: no symptoms Past Medical History Past Medical History: Please refer to HPI Past Surgical History: Please refer to HPI Family History Diabetes mellitus (DM) FH: HTN (hypertension) FH: cancer FH: heart disease No pertinent family history Please refer to HPI Social History Please refer to HPI Hx Tobacco Use In Past Year?: No Smoking Status: Former Smoker Alcohol: no current use Marital status: Housing status: lives alone Occupational Status: retired Allergies Coded Allergies: Amoxicillin (Verified Allergy, Intermediate, HIVES INSIDE AND OUT, 12/16/17 ) Nickel (Verified Allergy, Intermediate, RASH, 12/16/17) Levofloxacin (Verified Allergy, Unknown, unkown, 12/16/17) Penicillins (Verified Allergy, Unknown, unknown, 12/16/17) Current Medications Reported Home Medications Medications Dose Route/Sig Max Daily Dose Days Date Category Effexor Xr (Venlafaxine Hcl) 75 Mg Cap 1 Cap PO DAILY 12/16/17 Reported Toprol Xl (Metoprolol Succinate) 200 Mg Tab 1 Tab PO DAILY 12/16/17 Reported Spiriva Respimat (Tiotropium [place]) 2.5 Mcg/Act Spr 1 Puff INH DAILY 12/16/17 Reported Dulera 100/5 Mcg (Mometasone Furoate-Formoterol) 1 Aer Aer 2 Puffs INH BID 30 12/16/17 Reported Ventolin Hfa (Albuterol) 200 Puffs/77287 Mcg Aers 2-4 Puffs INH Q6H 12/16/17 Reported [Magnesium] 535 Mg PO BID 04/03/17 Reported Prinivil (Lisinopril) 20 Mg Tab 40 Mg PO DAILY 04/03/17 Reported Proventil 0.083% 2.5MG/3ML (Albuterol Sulf) 2.5 Mg/3 Ml Nebu 2.5 Mg INH Q4-6H PRN 04/03/17 Reported Zofran (Ondansetron HCl) 8 Mg Tab 8 Mg PO Q8 PRN 04/03/17 Reported Compazine (Prochlorperazine Maleate) 10 Mg Tab 10 Mg PO Q6-8H PRN 04/03/17 Reported Dulera 100/5 Mcg (Mometasone Furoate-Formoterol) 1 Aer Aer 1 Aer INH DAILY 04/03/17 Reported Klor-Con (Potassium Chloride) 20 Meq Tabcr 20 Meq PO QPM 04/19/16 Reported Levothyroxine Sodium 50 Mcg Tab 50 Mcg PO QAM 04/19/16 Reported Lasix (Furosemide) 40 Mg Tab 40 Mg PO DAILY 04/19/16 Reported Plavix (Clopidogrel Bisulfate) 75 Mg Tab 75 Mg PO HS 04/19/16 Reported Lipitor (Atorvastatin Calcium) 80 Mg Tab 80 Mg PO HS 04/19/16 Reported Xanax (Alprazolam) 1 Mg Tab 1 Mg PO TID PRN 04/19/16 Reported Physical Physical Exam Vital Signs: Date Time Temp Pulse Resp B/P (MAP) Pulse Ox O2 Delivery O2 Flow Rate FiO2 12/17/17 08:00 Nasal Cannula 2.0 12/17/17 07:41 37.4 96 18 103/65 (78) 100 Nasal Cannula 2.0 12/17/17 07:37 85 16 96 Nasal Cannula 2.0 12/17/17 05:06 37.3 99 20 96/52 (67) 97 2.0 12/17/17 04:00 Nasal Cannula 2.0 12/17/17 00:12 37.0 94 20 94/62 (73) 97 2.0 12/17/17 00:00 Nasal Cannula 2.0 12/16/17 20:27 36.7 88 20 94/60 (71) 99 2.0 12/16/17 20:06 100 Nasal Cannula 2.0 12/16/17 20:01 36.4 85 22 98/66 (77) 99 Nasal Cannula 2.0 12/16/17 19:55 90 16 100 Nasal Cannula 12/16/17 18:44 82 20 114/61 100 12/16/17 18:30 82 20 114/61 100 Nasal Cannula 2.0 12/16/17 17:39 91 12/16/17 17:35 99 Nasal Cannula 2.0 12/16/17 16:30 88 18 114/50 99 Room Air 12/16/17 15:13 82 18 103/62 99 Nasal Cannula 2.0 12/16/17 13:43 100 Room Air 12/16/17 13:38 92 12/16/17 12:57 36.4 90 18 82/58 91 Nasal Cannula 3.0 General Appearance: NO APPARENT DISTRESS Head: NORMOCEPHALIC, ATRAUMATIC Eyes: PERRLA, NO DISCHARGE, EOMI, SCLERAE NORMAL ENT: NORMAL EAR EXAM, NORMAL NASAL EXAM, NORMAL MOUTH EXAM, NORMAL THROAT EXAM Neck: NORMAL RANGE OF MOTION, NO TENDERNESS, TRACHEA MIDLINE, NO STRIDOR Respiratory: other (Decreased breath sounds globally the greatest in the right apices) Cardiovasular: REGULAR RATE/RHYTHM, NORMAL S1S2, NO M/G/R, NO MURMUR Abdomen: NON TENDER, NORMAL BOWEL SOUNDS, NO REBOUND, NO MASSES, NO GUARDING, NO ORGANOMEGALY Genitourinary - Female: EXTERNAL GENITALIA NORMAL Back: NORMAL INSPECTION, NO MIDLINE TENDERNESS, NO CVA TENDERNESS, NO PARAVERTEBRAL TTP Upper Extremities: NO EDEMA, NO DEFORMITY, NORMAL ROM Lower Extremities: NO EDEMA, NO DEFORMITY, NORMAL ROM Pulses: carotid (R) (2+), carotid (L) (2+), posterior tibial (R), posterior tibial (L) (2+) Neuro: ALERT, ORIENTED x 3, NORMAL MOTOR EXAM, NORMAL SENSATION, NORMAL CEREBELLAR EXAM, NORMAL SPEECH Reflexes: biceps (R) (2+), bicpes (L) (2+), achilles (R) (2+), achilles (L) (2+ ) Babinski Testing: right (downgoing), left (downgoing) Psychiatric: NORMAL AFFECT, NO SUICIDAL IDEATION Diagnostics Labs Results Past 24 Hours Test 12/16/17 13:35 12/16/17 13:47 12/17/17 06:28 Range/Units Influenza Type A Antigen Neg for Influ A NEG Influenza Type B Antigen Neg for Influ B NEG White Blood Count 3.49 3.26 4.8-10.8 K/uL Red Blood Count 2.69 2.39 4.2-5.4 M/uL Hemoglobin 7.4 6.5 12.0-16.0 g/dL Hematocrit 23.7 21.4 37-47 % Mean Corpuscular Volume 88.1 89.5 80-100 fL Mean Corpuscular Hemoglobin 27.5 27.2 25-34 pg Mean Corpuscular Hemoglobin Concent 31.2 30.4 32-36 g/dl Platelet Count 126 133 130-400 K/uL Mean Platelet Volume 10.5 10.1 7.4-10.4 fL RDW Standard Deviation 49.9 50.7 36.4-46.3 fL RDW Coefficient of Variation 15.6 15.7 11.5-14.5 % Nucleated RBC Absolute Count (auto) 0.05 0-0 K/uL Neutrophils % (Manual) 64.3 % Lymphocytes % (Manual) 11.3 % Monocytes % (Manual) 19.1 % Eosinophils % (Manual) 3.5 % Basophils % (Manual) 0.9 % Myelocytes % 0.9 % Nucleated Red Blood Cells % 1.3 % Neutrophils # (Manual) 2.24 1.4-6.5 K/uL Total Absolute Neutrophils 2.24 1.4-6.5 K/uL Lymphocytes # (Manual) 0.39 1.2-3.4 K/uL Total Absolute Lymphocytes 0.39 1.2-3.4 K/uL Monocytes # (Manual) 0.67 0.11-0.59 K/uL Eosinophils # (Manual) 0.12 0-0.5 K/uL Basophils # (Manual) 0.03 0-0.2 K/uL Myelocytes # 0.03 0-0 K/uL Toxic Granulation 2+ 2+ Giant Platelets 2+ Polychromasia 1+ Ovalocytes 1+ Prothrombin Time 9.8 10.0 9.0-12.0 SECONDS Prothromb Time International Ratio 0.9 1.0 0.9-1.1 Activated Partial Thromboplast Time 25.0 21.0-31.0 SECONDS Partial Thromboplastin Ratio 1.0 Sodium Level 136 136-145 mmol/L Potassium Level 3.8 3.5-5.1 mmol/L Chloride Level 99 98-107 mmol/L Carbon Dioxide Level 30 21-32 mmol/L Anion Gap 7.0 3-11 mmol/L Blood Urea Nitrogen 33 7-18 mg/dl Creatinine 2.10 0.60-1.20 mg/dl Est Creatinine Clear Calc Drug Dose 20.8 ml/min Estimated GFR () 25.3 Estimated GFR (Non- 21.8 BUN/Creatinine Ratio 15.9 10-20 Random Glucose 106 70-99 mg/dl Calcium Level 9.0 8.5-10.1 mg/dl Total Bilirubin 0.2 0.2-1 mg/dl Direct Bilirubin < 0.1 0-0.2 mg/dl Aspartate Amino Transf (AST/SGOT) 18 15-37 U/L Alanine Aminotransferase (ALT/SGPT) 19 12-78 U/L Alkaline Phosphatase 82 45-117 U/L Troponin I < 0.015 0-0.045 ng/ml Total Protein 6.7 6.4-8.2 gm/dl Albumin 2.3 3.4-5.0 gm/dl Neutrophils (%) (Auto) 58.3 % Lymphocytes (%) (Auto) 20.2 % Monocytes (%) (Auto) 16.6 % Eosinophils (%) (Auto) 1.5 % Basophils (%) (Auto) 0.6 % Neutrophils # (Auto) 1.90 1.4-6.5 K/uL Lymphocytes # (Auto) 0.66 1.2-3.4 K/uL Monocytes # (Auto) 0.54 0.11-0.59 K/uL Eosinophils # (Auto) 0.05 0-0.5 K/uL Basophils # (Auto) 0.02 0-0.2 K/uL Immature Granulocyte % (Auto) 2.8 % Immature Granulocyte # (Auto) 0.09 0.00-0.02 K/uL Large Platelets 1+ Hypochromasia PRESENT Anisocytosis PRESENT Microbiology Results 12/16/17 Blood Culture, Received Pending 12/16/17 Blood Culture, Received Pending 12/17/17 Gram Stain, Received Pending 12/17/17 Sputum Culture, Received Pending Diagnostic Radiology Please refer to HPI EKG Please refer to HPI Impression Assessment and Plan 77-year-old female admitted with failure to thrive and flu type signs and symptoms as well as mild hypertension noted in the ED: 1 Respiratory: Patient does have very severe COPD with an FEV1 of 28%. I do not believe she is having a COPD exacerbation at this time and agree with not initiating steroids and continue on her baseline pulmonary medications with Spiriva, Mucinex and DuoNeb's. #2 shoulder pain: Shoulder pain is consistent with pleuritic type discomfort and the patient does note relief with Aleve. We will continue intermittent NSAID use/ibuprofen as needed. 3. Chest x-ray: The chest x-ray does show increasing infiltrate in the right upper lobes/apices. I like to continue to monitor this repeating chest x-ray in the morning. #4 Infection: I do agree with ceftriaxone and azithromycin at this time but will order pro-calcitonin. If negative I suggest we reevaluate the patient and possibly discontinue antibiotics she is showing no signs clinically of michael infection. We will continue to like to monitor the chest x-ray and be cautious as the patient could have been neutropenic last week as a total white blood cell count was only 1.73. If the patient does clinically worsen I suggest we initiate more aggressive therapy for neutropenic fever with cefepime, vancomycin and imipenem.
--- NOTE | 2017-12-17 10:58 | Clinical Documentation Query ---
QUERY 1 OF [address] MOLINA, In your clinical opinion is this patient being managed for: ( ) pancytopenia due to chemotherapy ( ) Not Agree ( ) Other explanation of clinical findings (Please Explain) ( ) Unable to determine (Please Define) ( ) Need to Discuss The medical record reflects the following clinical findings, treatment, and risk factors. Clinical Indicators: 77 yo female presenting with generalized weakness/pneumonia. Recently treated (12/04/17) with chemotherapy. WBC 3.49, Hgb 7.4, Hct 23.7, plts 126. As outpatient, pt had next scheduled chemo held due to low blood counts. Treatment: monitor CBC's, heme test stools, transfuse 1U PRBC Risk Factors: chemotherapy treatments for lung cancer QUERY 2 OF 2 In your clinical opinion is this patient being managed for: ( ) Chronic hypoxic respiratory failure ( ) Not Agree ( ) Other explanation of clinical findings (Please Explain) ( ) Unable to determine (Please Define) ( ) Need to Discuss The medical record reflects the following clinical findings, treatment, and risk factors. Clinical Indicators:Documentation indicates pt wears chronic home O2 support Treatment: chronic management includes chronic home O2, ventolin MDI, dulera, and spiriva Risk Factors: severe COPD, lung cancer, Please clarify and document your clinical opinion in the progress notes and discharge summary. Terms such as "probable", "suspected", "likely", "questionable", "possible", or "still to be ruled out" are acceptable. IF IN AGREEMENT, YOU MUST DOCUMENT ABOVE DIAGNOSTIC STATEMENT IN DAILY PROGRESS NOTES AND DISCHARGE SUMMARY. This document is not part of the patient's record. Thank You, Sabrina Reyes, RN [phone]
[2017-12-17] MEDS: IPRATROPIUM BROMIDE/ALBUTEROL respimat INH INH SCH ×3 (13:08→20:48)
[2017-12-17] MEDS ORDERED: CEFTRIAXONE SOD INJ 1 GM in DEXTROSE 5% ADD-VANTAGE 50ML 50 ML IV SCH (16:00)
[2017-12-17] MEDS ORDERED: AZITHROMYCIN IV 500 MG in DEXTROSE 5% 250ML 250 ML IV SCH (18:00)
[2017-12-17] MEDS: CLOPIDOGREL BISULFATE 75 MG TAB PO SCH (20:48)
[2017-12-17] MEDS: ATORVASTATIN 40 MG TAB PO SCH (20:48)
[2017-12-18] VITALS (8 sets, daily range): BP systolic 107–122; BP diastolic 66–78; PULSE 90–106; TEMP 36.7–37.5; O2SAT 95–99
[2017-12-18] MEDS: LEVOTHYROXINE 50 MCG TAB PO SCH (06:24)
[2017-12-18 06:57] LABS: HEMATOCRIT 24.4 % (37-47); HEMOGLOBIN 7.7 g/dL (12.0-16.0); MEAN CELL VOLUME 84.7 fL (80-100); MEAN CORPUSCULAR HEMOGLOBIN 26.7 pg (25-34); MEAN CORPUSCULAR HGB CONC 31.6 g/dl (32-36); PLATELET COUNT 154 K/uL (130-400); RED CELL DISTRIBUTION WIDTH CV 18.1 % (11.5-14.5); RED CELL DISTRIBUTION WIDTH SD 56.1 fL (36.4-46.3); WHITE BLOOD COUNT 4.63 K/uL (4.8-10.8)
[2017-12-18 06:58] LABS: CALCIUM 8.4 mg/dl (8.5-10.1); CREATININE 1.25 mg/dl (0.60-1.20); POTASSIUM 3.7 mmol/L (3.5-5.1)
[2017-12-18 07:10] LABS: BASO % 0.4 %; BASO ABS # 0.02 K/uL (0-0.2); EOS % 0.9 %; EOS ABS # 0.04 K/uL (0-0.5); IG# 0.09 K/uL (0.00-0.02); LYMPH % 16.2 %; LYMPH ABS # 0.75 K/uL (1.2-3.4); MONO % 16.8 %; MONO ABS # 0.78 K/uL (0.11-0.59); NEUT % 63.8 %; NEUT ABS # 2.95 K/uL (1.4-6.5)
[2017-12-18] MEDS: GUAIFENESIN 600 MG TABCR PO SCH ×2 (08:46→20:49)
[2017-12-18] MEDS: TIOTROPIUM BROMIDE 5 PUFF/90 MCG INH INH SCH (08:47)
[2017-12-18] MEDS: METOPROLOL SUCC 50MG EXT REL TAB PO SCH (08:47)
[2017-12-18] MEDS: VENLAFAXINE HCL XR 75 MG CAPXR PO SCH (08:47)
[2017-12-18] MEDS: IPRATROPIUM BROMIDE/ALBUTEROL respimat INH INH SCH ×4 (08:48→20:48)
[2017-12-18] MEDS: DULERA: ORDER AWAITING ACTION SCH ×3 (08:48→23:56)
--- NOTE | 2017-12-18 12:45 | Progress Note ---
Subjective Date of Service: Dec 18, 2017. Subjective Pt evaluation today including: conversation w/ patient, conversation w/ family Calvin is a 77 yo female who has advanced cancer. She was admitted with a possible pneumonia. Today she reports feeling better. Daughter was in the room and she was updated. Problem List Medical Problems: (1) AMPARO (acute kidney injury) Status: Acute (2) AMPARO (acute kidney injury) Status: Acute (3) Bronchitis Status: Acute (4) COPD (chronic obstructive pulmonary disease) Status: Acute (5) COPD exacerbation Status: Acute (6) Hypokalemia Status: Acute (7) Hypomagnesemia Status: Acute (8) Multifocal atrial tachycardia Status: Acute (9) Pancytopenia Status: Acute (10) Pneumonia Status: Acute (11) Rapid atrial fibrillation Status: Acute (12) Shortness of breath Status: Acute Review of Systems Constitutional: No fever, No chills Eyes: No worsening of vision ENT: No hearing loss Respiratory: + cough Cardiac: No chest pain Breast: No breast lump Abdomen: No pain, No nausea Musculoskeletal: + joint pain Neurologic: No memory loss Psychiatric: No depression symptoms Endo: + fatigue Skin: No rash All Other Systems: Reviewed and Negative All Other Systems: Reviewed and Negative Medications Current Inpatient Medications Medications (Trade) Dose Ordered Sig/Ede Route Start Time Stop Time Status Last Admin Dose Admin Acetaminophen (Tylenol Tab) 650 mg Q4H PRN PO 12/16/17 18:00 01/15/18 17:59 12/17/17 16:14 650 MG Ondansetron HCl (Zofran Inj) 4 mg Q6H PRN IV 12/16/17 18:00 01/15/18 17:59 Polyethylene (Miralax Powder Packet) 17 gm DAILY PRN PO 12/16/17 18:00 01/15/18 17:59 Alprazolam (Xanax Tab) 1 mg TID PRN PO 12/16/17 18:30 01/15/18 18:29 12/17/17 23:38 1 MG Atorvastatin Calcium (Lipitor Tab) 80 mg HS PO 12/16/17 21:00 01/15/18 20:59 12/18/17 20:48 80 MG Clopidogrel Bisulfate (plAVix TAB) 75 mg HS PO 12/16/17 21:00 01/15/18 20:59 12/18/17 20:49 75 MG Levothyroxine Sodium (Synthroid Tab) 50 mcg DAILYBB PO 12/17/17 06:30 01/16/18 06:59 12/18/17 06:24 50 MCG Metoprolol Succinate (Toprol Xl Tab) 200 mg DAILY PO 12/17/17 09:00 01/16/18 08:59 12/18/17 08:47 200 MG Ondansetron HCl (Zofran Tab) 8 mg Q8 PRN PO 12/16/17 18:30 01/15/18 18:29 Venlafaxine HCl (effeXOR EXTENDED REL CAP) 75 mg DAILY PO 12/17/17 09:00 01/16/18 08:59 12/18/17 08:47 75 MG Guaifenesin (Mucinex Contr Rel Tab) 1,200 mg Q12 PO 12/16/17 21:00 01/15/18 20:59 12/18/17 20:49 1,200 MG Miscellaneous Information (Order Awaiting Action) 1 ea QS N/A 12/17/17 00:00 01/16/18 00:00 Tiotropium [place] (Spiriva Handihaler Inhaler) 1 puff QAM INH 12/17/17 09:00 01/16/18 08:59 12/18/17 08:47 1 PUFF Albuterol/ Ipratropium (Combivent Respimat Inh) 1 puffs QID INH 12/17/17 13:00 01/16/18 12:59 12/18/17 20:48 1 PUFFS Azithromycin (Zithromax Tab) 250 mg QPM PO 12/18/17 21:00 12/25/17 20:59 12/18/17 20:49 250 MG Objective Vital Signs Date Time Temp Pulse Resp B/P (MAP) Pulse Ox O2 Delivery O2 Flow Rate FiO2 12/18/17 08:00 98 Nasal Cannula 2.0 12/18/17 07:55 37.3 106 16 119/75 (90) 98 2.0 12/18/17 04:17 37.1 90 18 122/74 (90) 98 Nasal Cannula 2.0 12/18/17 04:00 Nasal Cannula 2.0 12/18/17 00:00 Nasal Cannula 2.0 12/17/17 23:34 36.8 95 18 127/77 (94) 97 Nasal Cannula 2.0 12/17/17 20:00 Nasal Cannula 2.0 12/17/17 19:50 36.4 87 19 95/62 (73) 100 Nasal Cannula 2.0 12/17/17 15:51 Nasal Cannula 2.0 12/17/17 15:00 37.2 90 18 121/77 (92) 97 Nasal Cannula 2.0 12/17/17 13:45 36.8 85 16 92/57 (69) 100 Room Air Physical Exam Comments: General Appearance: WD/WN, no apparent distress Eyes: normal inspection ENT: normal ENT inspection Neck: supple, no adenopathy Respiratory/Chest: chest non-tender, + decreased breath sounds (especially in right upper lobe) Cardiovascular: regular rate, rhythm, no JVD Abdomen: normal bowel sounds, non tender, soft Extremities: normal range of motion, non-tender Neurologic/Psychiatric: alert, oriented x 3 Skin: normal color Lymphatic: no adenopathy Laboratory Results Last 24 Hours Test 12/18/17 06:02 White Blood Count 4.63 K/uL Red Blood Count 2.88 M/uL Hemoglobin 7.7 g/dL Hematocrit 24.4 % Mean Corpuscular Volume 84.7 fL Mean Corpuscular Hemoglobin 26.7 pg Mean Corpuscular Hemoglobin Concent 31.6 g/dl Platelet Count 154 K/uL Mean Platelet Volume 9.0 fL Neutrophils (%) (Auto) 63.8 % Lymphocytes (%) (Auto) 16.2 % Monocytes (%) (Auto) 16.8 % Eosinophils (%) (Auto) 0.9 % Basophils (%) (Auto) 0.4 % Neutrophils # (Auto) 2.95 K/uL Lymphocytes # (Auto) 0.75 K/uL Monocytes # (Auto) 0.78 K/uL Eosinophils # (Auto) 0.04 K/uL Basophils # (Auto) 0.02 K/uL RDW Standard Deviation 56.1 fL RDW Coefficient of Variation 18.1 % Immature Granulocyte % (Auto) 1.9 % Immature Granulocyte # (Auto) 0.09 K/uL Toxic Granulation 1+ Ovalocytes 1+ Prothrombin Time 10.0 SECONDS Prothromb Time International Ratio 1.0 Sodium Level 139 mmol/L Potassium Level 3.7 mmol/L Chloride Level 103 mmol/L Carbon Dioxide Level 29 mmol/L Anion Gap 7.0 mmol/L Blood Urea Nitrogen 19 mg/dl Creatinine 1.25 mg/dl Est Creatinine Clear Calc Drug Dose 34.8 ml/min Estimated GFR () 47.4 Estimated GFR (Non- 40.9 BUN/Creatinine Ratio 15.1 Random Glucose 98 mg/dl Calcium Level 8.4 mg/dl Assessment and Plan This is a 77 yo F with PMhx of 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 Gaffney, COPD, chronic supplemental O2 use, remote smoking history, HTN, HLD, paroxysmal Afib with hx of RVR, diastolic CHF, frequent PACs, old LBBB, AAA, aortic stenosis, cardiomyopathy, who presents with worsening shortness of breath and cough over the past week. Hospital acquired Pneumonia of the RUL in the setting of RUL SCLC COPD Shortness of breath Continues to improve. will place on azithromycin 250mg will stop cephalosporin Had a long discussion with patient regarding goals of care. Currently patient is awake, and is showing capacity. Patient understands her advanced cancer condition. Patient is interested in home hospice service. Will set up home hospice agency today. Patient will likely be discharged tomorrow in AM. Patient will have meeting with hospice service to see if she is appropriate for it. - Continue supportive care with duo nebs, incentive spirometry, flutter, Mucinex , O2 protocol, sputum culture -Patient does not show evidence of fluid overload - Continue Spiriva, Dulera as outpatient regimen - Continue to hold steroids. Small Lung Cell Carcinoma - Has received 2 cycles of chemotherapy so far, last on 12/04. Pt does not have a mediport. Follows with Dr. Gaffney as an outpatient -Poor mcc prognosis. -Will discuss with her regarding goals of care. (PLEASE SEE ABOVE) Anemia of Chronic disease, possible worsening in the setting of acute chemotherapy - Hemoglobin improved to above 7 Borderline hypotension BP improved. will continue bP meds Hypertension Hyperlipidemia Cardiomyopathy with reduced EF of 25-30 % with last Echo 09/04/17 Diastolic CHF Aortic stenosis Paroxysmal A. fib LBBB -Hold lisinopril with slight bump in Cr.continue Plavix, -Patient follows with Dr. Gallego as an outpatient - With reduced EF and hx of prolonged tachycardia, cardiology was considering placing a biventricular ICD. However was then diagnosed with lung cancer as above therefore underwent chemotherapy first. -Continue atorvastatin 40 mg daily AMPARO on CKD stage III - Baseline Cr appears to be 1.2-1.3, Cr currently elevated at 2.1 -No repeat labs today Pancytopenia may be due to chemotherapy. will monitor Hx AAA - Last CT abd/pelvis shows this measures 5.8x4.8 cm on 08/04/17 - pt follows with Dr. Reinoso from [facility] and was told that she needs surgery but was planning on having a pacemaker placed prior to this surgical procedure. Depression - continue Effexor 75 mg daily DVT ppx: Teds, scds, plavix, no further chemical anticoagulation in the setting of anemia. CODE STATUS: DNR Disposition:likely home hospice I spent 65 minutes on the management of this case. Continued [facility] stay due to: abnormal vital signs Discharge planning: home with Hospice
[2017-12-18] MEDS: ATORVASTATIN 40 MG TAB PO SCH (20:48)
[2017-12-18] MEDS: CLOPIDOGREL BISULFATE 75 MG TAB PO SCH (20:49)
[2017-12-18] MEDS ORDERED: AZITHROMYCIN 250 MG TAB PO SCH (21:00)
[2017-12-19 00:04] VITALS: BP 122/81; PULSE 94; TEMP 36.4; O2SAT 98
[2017-12-19] MEDS: LEVOTHYROXINE 50 MCG TAB PO SCH (06:15)
[2017-12-19 06:43] LABS: HEMATOCRIT 25.5 % (37-47); HEMOGLOBIN 7.6 g/dL (12.0-16.0); MEAN CELL VOLUME 85.6 fL (80-100); MEAN CORPUSCULAR HEMOGLOBIN 25.5 pg (25-34); MEAN CORPUSCULAR HGB CONC 29.8 g/dl (32-36); MEAN PLATELET VOLUME 9.3 fL (7.4-10.4); NUCLEATED RED BLOOD CELL ABS 0.02 K/uL (0-0); PLATELET COUNT 192 K/uL (130-400); RED CELL DISTRIBUTION WIDTH SD 53.3 fL (36.4-46.3); WHITE BLOOD COUNT 4.74 K/uL (4.8-10.8)
[2017-12-19 06:59] LABS: BASO % 0.2 %; BASO ABS # 0.01 K/uL (0-0.2); EOS % 1.1 %; EOS ABS # 0.05 K/uL (0-0.5); IG# 0.14 K/uL (0.00-0.02); LYMPH ABS # 0.57 K/uL (1.2-3.4); MONO % 19.2 %; MONO ABS # 0.91 K/uL (0.11-0.59); NEUT % 64.5 %; NEUT ABS # 3.06 K/uL (1.4-6.5)
[2017-12-19 08:00] VITALS: O2SAT 100
[2017-12-19] MEDS: DULERA: ORDER AWAITING ACTION SCH ×2 (08:00→16:00)
[2017-12-19] MEDS: TIOTROPIUM BROMIDE 5 PUFF/90 MCG INH INH SCH (08:05)
[2017-12-19] MEDS: IPRATROPIUM BROMIDE/ALBUTEROL respimat INH INH SCH ×3 (08:05→17:00)
[2017-12-19] MEDS: VENLAFAXINE HCL XR 75 MG CAPXR PO SCH (08:06)
[2017-12-19] MEDS: METOPROLOL SUCC 50MG EXT REL TAB PO SCH (08:07)
[2017-12-19] MEDS: GUAIFENESIN 600 MG TABCR PO SCH (08:08)
[2017-12-19 08:23] VITALS: BP 111/68; PULSE 86; TEMP 36.6; O2SAT 100
[2017-12-19] MEDS ORDERED: AZIT-57 PO ×2 (15:31→15:32)
[2017-12-19 15:39] VITALS: BP 97/67; PULSE 96; TEMP 36.6; O2SAT 98
[2017-12-19 15:40] VITALS: BP 97/67; PULSE 96; TEMP 36.6; O2SAT 98
--- NOTE | 2017-12-19 16:13 | Discharge Instructions ---
Discharge Instructions Date of Service Dec 19, 2017. Admission Reason for Admission: Pneumonia Discharge Discharge Diagnosis / Problem: Small cell lung cancer/ Pneumonia Discharge Goals Goal(s): Decrease discomfort, Improve function Activity Recommendations Activity Limitations: resume your previous activity . Instructions / Follow-Up Instructions / Follow-Up Patient will meet with Home Hospice agency tomorrow. Patient was given POLST form. Patient at this time is unsure if she wants to be home hospice. I recommend continuing the azithromycin three times a week to decrease COPD exacerbations. Will also continue azithromycin 3 times a week Current Hospital Diet Patient's current hospital diet: AHA Diet (Heart Healthy) Discharge Diet Recommended Diet: AHA Diet (Heart Healthy) Pending Studies Studies pending at discharge: no Medical Emergencies . Who to Call and When: Medical Emergencies: If at any time you feel your situation is an emergency, please call 911 immediately. . Non-Emergent Contact Non-Emergency issues call your: Primary Care Provider Call Non-Emergent contact if: you have any medication questions . . "Provider Documentation" section prepared by Hero Khan. .
--- NOTE | 2017-12-26 06:56 | EDITING REQUIRED CODING QUERY ---
CODING QUERY To promote full compliance with coding requirements relating to patient care, provider participation is requested in all cases of death surveys coder uncertainty. Please assist us with the question(s) below: Coding Question(s): In your clinical opinion is this patient being managed for: ( x ) pancytopenia due to chemotherapy ( ) Not Agree ( ) Other explanation of clinical findings (Please Explain) ( ) Unable to determine (Please Define) Physician's Response(s): Thank you Lisa Brown Principal Diagnosis: "_that condition established after study, to be chiefly responsible for occasioning the admission of the patient to the hospital for care." Co-Existing Principal Diagnosis: "_when two or more diagnoses equally meet the criteria for principal diagnosis as determined by the circumstances of admission, diagnostic work up, and/or therapy provided, and the Alphabetic Index, Tabular List, or another coding guideline does not provide sequencing direction, any one of the diagnoses may be sequenced first." "When the physician has documented what appears to be a current diagnosis in the body of the record, but has not included the diagnosis in the final diagnostic statement, the physician should be asked whether the diagnosis should be added." (Source Coding Clinic 2 QTR90. p3-4)
--- NOTE | 2017-12-28 22:05 | Discharge Summary ---
Discharge Summary Date of Service Dec 19, 2017. Discharge Summary Admission Date: Dec 16, 2017 at 17:48 Discharge Date: Dec 19, 2017 Discharge Disposition: Home with services Principal Diagnosis: Hospital acquired Pneumonia Problems/Secondary Diagnoses: As stated below. Medication Reconciliation New Medications: Azithromycin (Azithromycin) 250 Mg Tab 1 TAB PO MWF for 30 Days, #12 TAB 3 Refills Azithromycin (Azithromycin) 250 Mg Tab 250 MG PO QPM for 2 Days, #2 TAB Continued Medications: Albuterol Hfa (Ventolin Hfa) 200 Puffs/06078 Mcg Aers 2-4 PUFFS INH Q6H, #1 INHALER Albuterol Sulf (Proventil 0.083% 2.5MG/3ML) 2.5 Mg/3 Ml Nebu 2.5 MG INH Q4-6H PRN for Shortness of Breath, EA Alprazolam (Xanax) 1 Mg Tab 1 MG PO TID PRN for Anxiety/Insomnia, TAB Furosemide (Lasix) 40 Mg Tab 40 MG PO DAILY, TAB Levothyroxine Sodium (Levothyroxine Sodium) 50 Mcg Tab 50 MCG PO QAM, 3 Refills Metoprolol Succinate (Toprol Xl) 200 Mg Tab 1 TAB PO DAILY Mometasone Furoate-Formoterol (Dulera 100/5 Mcg) 1 Aer Aer 2 PUFFS INH BID for 30 Days, #13 GM 2 Refills Ondansetron Hcl (Zofran) 8 Mg Tab 8 MG PO Q8 PRN for Nausea, TAB Potassium Ext Rel (Klor-Con) 20 Meq Tabcr 20 MEQ PO QPM, TAB Prochlorperazine Maleate (Compazine) 10 Mg Tab 10 MG PO Q6-8H PRN for Nausea or Vomiting, TAB Tiotropium [place] (Spiriva Respimat) 2.5 Mcg/Act Spr 1 PUFF INH DAILY, INHALER Venlafaxine Hcl (Effexor Xr) 75 Mg Cap 1 CAP PO DAILY [Magnesium] () 535 MG PO BID Discontinued Medications: Lisinopril (Prinivil) 20 Mg Tab 40 MG PO DAILY, TAB Mometasone Furoate-Formoterol (Dulera 100/5 Mcg) 1 Aer Aer 1 AER INH DAILY, INHALER Discharge Exam Review of Systems Constitutional: No fever, No chills Eyes: No worsening of vision ENT: No hearing loss Respiratory: + cough Cardiac: No chest pain Breast: No breast lump Abdomen: No pain, No nausea Musculoskeletal: + joint pain Neurologic: No memory loss Psychiatric: No depression symptoms Endo: + fatigue Skin: No rash All Other Systems: Reviewed and Negative All Other Systems: Reviewed and Negative Physical Exam Comments: General Appearance: WD/WN, no apparent distress Eyes: normal inspection ENT: normal ENT inspection Neck: supple, no adenopathy Respiratory/Chest: chest non-tender, improved breath sounds in right lower lobe Cardiovascular: regular rate, rhythm, no JVD Abdomen: normal bowel sounds, non tender, soft Extremities: normal range of motion, non-tender Neurologic/Psychiatric: alert, oriented x 3 Skin: normal color Lymphatic: no adenopathy Hospital Course This is a 77 yo F with PMhx of 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 Gaffney, COPD, chronic supplemental O2 use, remote smoking history, HTN, HLD, paroxysmal Afib with hx of RVR, diastolic CHF, frequent PACs, old LBBB, AAA, aortic stenosis, cardiomyopathy, who presents with worsening shortness of breath and cough over the past week. Hospital acquired Pneumonia of the RUL in the setting of RUL SCLC COPD Shortness of breath Continues to improve. will place on azithromycin 250mg and continue for 3 days. will then recommend taking azithromycin 3 days a week to decrease copd exacerbations. will stop cephalosporin Had a long discussion with patient regarding goals of care. Currently patient is awake, and is showing capacity. Patient understands her advanced cancer condition. Patient initially was interested in home hospice service. However after meeting with son, patient carlos likely to hold off hospice. Patient will still have meeting with hospice service tomorrow at home. -Patient does not show evidence of fluid overload - Continue Spiriva, Dulera as outpatient regimen Small Lung Cell Carcinoma - Has received 2 cycles of chemotherapy so far, last on 12/04. Pt does not have a mediport. Follows with Dr. 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 -Will defer her goals of care to PCP and Onc. (PLEASE SEE ABOVE) Anemia of Chronic disease, possible worsening in the setting of acute chemotherapy - Hemoglobin improved to above 7 Borderline hypotension BP improved. will continue bP meds Pancytopenia may be due to chemotherapy. will monitor. defer to pcp. Hypertension Hyperlipidemia Cardiomyopathy with reduced EF of 25-30 % with last Echo 09/04/17 Diastolic CHF Aortic stenosis Paroxysmal A. fib LBBB -Hold lisinopril with slight bump in Cr.continue Plavix, -Patient follows with Dr. Gallego as an outpatient - With reduced EF and hx of prolonged tachycardia, cardiology was considering placing a biventricular ICD. However was then diagnosed with lung cancer as above therefore underwent chemotherapy first. -Continue atorvastatin 40 mg daily AMPARO on CKD stage III - Baseline Cr appears to be 1.2-1.3, Cr currently elevated at 2.1 -No repeat labs today Pancytopenia may be due to chemotherapy. will monitor Hx AAA - Last CT abd/pelvis shows this measures 5.8x4.8 cm on 08/04/17 - pt follows with Dr. Reinoso from [facility] and was told that she needs surgery but was planning on having a pacemaker placed prior to this surgical procedure. Depression - continue Effexor 75 mg daily DVT ppx: Teds, scds, plavix, no further chemical anticoagulation in the setting of anemia. CODE STATUS: DNR Total Time Spent: Greater than 30 minutes This includes examination of the patient, discharge planning, medication reconciliation, and communication with other providers. Discharge Instructions Please refer to the electronic Patient Visit Report (Discharge Instructions) for additional information. Follow-Up as stated in discharge instructions
== END 2017-12-19 19:06 | disposition hospice, home (50) | DRG 193 ==
LOC: C.EDB 12:55 → C.MED 17:48 → ENRESERV 17:55 → C.MED 12-17 08:03 → ENRESERV 12-18 12:43 → CANRESERV 12-18 12:43 → ENRESERV 12-18 13:32 → CANRESERV 12-18 13:32 → ENRESERV 12-18 17:53 → CANRESERV 12-18 17:53 → ENRESERV 12-18 19:08 → C.MS4W 12-18 19:40
PROVIDERS: ADMIT Internal Medicine; ATTEND Internal Medicine Sports Medicine
DX: J18.9 Pneumonia, unspecified organism (principal); D61.810 Antineoplastic chemotherapy induced pancytopenia; I50.32 Chronic diastolic (congestive) heart failure; C34.90 Malignant neoplasm of unspecified part of unspecified bronchus or lung; N17.9 Acute kidney failure, unspecified; I13.0 Hypertensive heart and chronic kidney disease with heart failure and stage 1 through stage 4 chronic kidney disease, or unspecified chronic kidney disease; I48.0 Paroxysmal atrial fibrillation; I12.9 Hypertensive chronic kidney disease with stage 1 through stage 4 chronic kidney disease, or unspecified chronic kidney disease; J44.9 Chronic obstructive pulmonary disease, unspecified; F32.9 Major depressive disorder, single episode, unspecified; E78.5 Hyperlipidemia, unspecified; E03.9 Hypothyroidism, unspecified; D63.8 Anemia in other chronic diseases classified elsewhere; I35.0 Nonrheumatic aortic (valve) stenosis; I44.7 Left bundle-branch block, unspecified; N18.3 Chronic kidney disease, stage 3 (moderate); Z66 Do not resuscitate; I95.9 Hypotension, unspecified; Z87.891 Personal history of nicotine dependence; Z88.0 Allergy status to penicillin; Z88.1 Allergy status to other antibiotic agents; Z99.81 Dependence on supplemental oxygen; Z80.9 Family history of malignant neoplasm, unspecified; Z83.3 Family history of diabetes mellitus; Z82.49 Family history of ischemic heart disease and other diseases of the circulatory system